=== PATIENT | female | born 1975 | race Caucasian/White ===

== ENCOUNTER 2024-07-08 20:31 | Emergency (ER) | payer OTHER, SELFPAY ==
[2024-07-08] VITALS (10 sets, daily range): BP systolic 132–144; BP diastolic 75–102; PULSE 76–86; RESP 18; TEMP 36.7; O2SAT 96–99; BMI 31.3
--- NOTE | 2024-07-08 20:37 | ED_ITS ---
HPI - General Adult General Chief complaint: Chest Pain Stated complaint: Short of breath, chest pain Time Seen by Provider: 07/08/24 20:37 History of Present Illness HPI narrative: CC: Chest Pain , Shortness of Breath pt. with shortness of breath since she had covid 2 weeks ago. started with chest pain tonight about 1935. denies fevers, n/v, diarrhea. 49 year old woman presenting to the emergency department with complaint of chest pain. This frankly is the reason that she is presenting to the emergency department she clarifies later. Was diagnosed with COVID a couple of weeks ago. Has since tested negative. Has had a couple of visits for shortness of breath since this diagnosis. Shortness of breath is more pronounced when she tries to lay down. Does not have a diagnosis of heart failure. She did receive 1st round of vaccines apparently having a reaction to that and 2nd and has a continued. She has had she estimates now COVID about 4 times. Does not have underlying respiratory disease but did have some wheeze she reports when she was 1st assessed in the last 2 weeks. She is now on her 2nd round of steroids prescribed 3 days ago for 4 days. Does still have some cough. At rest this evening though began to feel intermittent pain that was ongoing for least an hour prior to arrival here in the emergency department. Located in the sternal and left mid chest. Later described as a burning pain that did not seem to be heartburn. Noted her blood pressure to be 170 systolic at home over at least 100 diastolic. I note her to be somewhat tremulous and she does admit to some anxiety. Generally tobacco free though admits that she does sneak cigarettes. No known cardiovascular disease. She is worried about the tension that she has been feeling in her face which she associates with fluid retention; worried about that resolving. She notes that her hands and fingers are puffy as well. And when she opens her hands they just feel tight. I do review records from last ER visit 3 days ago. She has had chest x-rays done on both visits and noted to be unremarkable. Related Data Home Medications ?Medication ?Instructions ?Recorded ?Confirmed lisinopril 10 mg tablet 10 mg PO DAILY 07/08/24 07/08/24 propranolol 120 mg capsule,24 120 mg PO DAILY 07/08/24 07/08/24 hr,extended release Allergies Allergy/AdvReac Type Severity Reaction Status Date / Time metoclopramide [From Reglan] Allergy Mild Agitation Verified 07/08/24 20:40 Penicillins Allergy Mild Hives Verified 07/08/24 20:40 prochlorperazine Allergy Mild Agitation Verified 07/08/24 20:40 [From Compazine] Review of Systems Status of ROS: Reports: 6 or more systems reviewed and unremarkable except as noted in History and below [facility] Medical History Intrauterine device ?Z97.5 - Presence of (intrauterine) contraceptive device (ICD-10) Hyperlipidemia ?E78.5 - Hyperlipidemia, unspecified (ICD-10) Anxiety disorder ?F41.9 - Anxiety disorder, unspecified (ICD-10) Asthma ?J45.909 - Unspecified asthma, uncomplicated (ICD-10) Hypertension ?I10 - Essential (primary) hypertension (ICD-10) ZABRINA on CPAP ?G47.33 - Obstructive sleep apnea (adult) (pediatric) (ICD-10) RLS (restless legs syndrome) ?G25.81 - Restless legs syndrome (ICD-10) Major depressive disorder ?F32.9 - Major depressive disorder, single episode, unspecified (ICD-10) Allergic rhinitis ?J30.9 - Allergic rhinitis, unspecified (ICD-10) Surgical History History of hysterectomy ?Z90.710 - Acquired absence of both cervix and uterus (ICD-10) History of carpal tunnel release ?Z98.890 - Other specified postprocedural states (ICD-10) History of endometrial ablation ?Z98.890 - Other specified postprocedural states (ICD-10) Social History Smoking Status: Never smoker Do you use any of these nicotine containing products: None Second hand tobacco smoke exposure: No How often do you have a drink containing alcohol: never How often do you have six or more drinks on one occasion: Never AUDIT-C Alcohol total score: 0 Non-prescribed substance use: denies use service: No Exam Narrative: Exam Narrative: Pleasant. Generally little flushed. Subtly labored in her breathing. Tremulous. Does appear anxious. Oropharynx is little sticky. Lungs are clear breath sounds throughout. There is no supraclavicular crepitus. Heart in regular rate and rhythm. No rub and auscultated leaning forward as well. Blood pressure initially noted at 144/102. Abdomen is nontender. There is some reproducibility to chest discomfort in the left upper sternum/sternal clavicular area. Apparently this radiated from mid sternum up. There is no rash. Lower extremities are without edema. Does appear to have some edema in her forearms and hands. Const: Vital Signs, click to edit/add: Vital Signs - 24 hr 07/08/24 20:35 07/08/24 21:21 07/08/24 21:23 Temperature 98.1 F Pulse Rate 83 Pulse Rate [Right Pulse Oximeter] 85 Respiratory Rate 18 Blood Pressure Blood Pressure [Ri ght Upper Arm] 144/102 H Pulse Oximetry 99 97 96 Oxygen Delivery Me thod Room Air 07/08/24 21:30 07/08/24 21:32 07/08/24 21:33 Temperature Pulse Rate 84 83 86 Pulse Rate [Right Pulse Oximeter] Respiratory Rate Blood Pressure 137/85 Blood Pressure [Ri ght Upper Arm] Pulse Oximetry 96 97 96 Oxygen Delivery Me thod 07/08/24 22:00 07/08/24 22:02 07/08/24 22:30 Temperature Pulse Rate 76 79 80 Pulse Rate [Right Pulse Oximeter] Respiratory Rate Blood Pressure 132/75 Blood Pressure [Ri ght Upper Arm] Pulse Oximetry 98 96 98 Oxygen Delivery Me thod 07/08/24 22:31 Temperature Pulse Rate 78 Pulse Rate [Right Pulse Oximeter] Respiratory Rate Blood Pressure 132/81 Blood Pressure [Ri ght Upper Arm] Pulse Oximetry 97 Oxygen Delivery Me thod Documenting provider has reviewed patient's vital signs: yes Course Vital Signs Vital signs: Initial Vital Signs Temperature 98.1 F 07/08/24 20:35 Temperature Source Temporal Artery Scan 07/08/24 20:35 Pulse Rate 85 07/08/24 20:35 Pulse Rhythm Regular 07/08/24 20:35 Pulse Strength 3+ Normal 07/08/24 20:35 Respiratory Rate 18 07/08/24 20:35 Blood Pressure 144/102 H 07/08/24 20:35 Blood Pressure Mean 116 H 07/08/24 20:35 Blood Pressure Position Supine 07/08/24 20:35 Pulse Oximetry 99 07/08/24 20:35 Oxygen Delivery Method Room Air 07/08/24 20:35 Vital Signs Temperature 98.1 F 07/08/24 20:35 Pulse Rate 85 07/08/24 20:35 Respiratory Rate 18 07/08/24 20:35 Blood Pressure 144/102 H 07/08/24 20:35 Pulse Oximetry 99 07/08/24 20:35 Oxygen Delivery Method Room Air 07/08/24 20:35 Temperature 98.1 F 07/08/24 20:35 Pulse Rate 78 07/08/24 22:31 Respiratory Rate 18 07/08/24 20:35 Blood Pressure 132/81 07/08/24 22:31 Pulse Oximetry 97 07/08/24 22:31 Oxygen Delivery Method Room Air 07/08/24 20:35 Medications Administered Medications: Discontinued Medications Generic Name Dose Route Start Last Admin Trade Name Freq PRN Reason Stop Dose Admin Sodium Chloride 500 mls @ 500 mls/hr 07/08/24 21:01 07/08/24 22:33 0.9 % Sodium Chloride 500 Ml IV 07/08/24 22:00 Infused .Q1H ONE Infusion Lorazepam 0.5 mg 07/08/24 21:01 07/08/24 21:15 Lorazepam 2 Mg/Ml Inj IVP 07/08/24 21:02 0.5 mg ONCE ONE Administration Lorazepam 0.5 mg 07/08/24 21:59 07/08/24 22:09 Lorazepam 2 Mg/Ml Inj IVP 07/08/24 22:00 0.5 mg ONCE ONE Administration Medical Decision Making MDM Narrative Medical decision making narrative: I do wonder if prednisone has contributed to some fluid retention which is the changes somewhat that she is seeing her skin. Can certainly check for any renal dysfunction in labs. Think anxiety is compounding symptoms here; she appears in agreement as does her significant other who accompanies. I would monitor also for tachyarrhythmia. There may also be some simple chest wall pain or pulmonary embolus. I think can screen with labs as she has low risk generally. Will check labs also for an indication of recent cardiovascular injury. Offering IV fluids if potentially would also moved towards contrasted imaging. And will treat with dose of lorazepam On reassessment has not noticed the initial dose of lorazepam. And re-dosing. Labs are generally reassuring. Venous blood gases a little bit on the basic side. Perhaps has been hyperventilating l although CO2 level is normal On reassessment is significantly improved. A little sleepy. Appears reassured. I think needs some more time to recover from COVID. Attempted offer reassurance today. See patient discharge plan for further discussion Medical Records Medical records reviewed: Yes I reviewed the patient's medical records Lab Data Lab results reviewed: Yes I reviewed the patient's lab results Labs: Lab Results 07/08/24 07/08/24 07/08/24 Range/Units 21:01 21:02 21:15 WBC 9.63 (4.50-11.00) K/uL RBC 4.90 (4.00-5.20) m/uL Hgb 14.8 (12.0-16.0) gm/dL Hct 44.2 (33.0-51.0) % MCV 90 (80-100) fL MCH 30 (26-34) pg MCHC 34 (32-36) gm/dL RDW Coeff of Janie 12.4 (11.5-15.5) % Plt Count 213 (140-440) K/uL Neut % (Auto) 61.7 (42.0-72.0) % Lymph % (Auto) 26.9 (20-44) % Banner % (Auto) 7.3 (0.0-11.0) % Eos % (Auto) 3.3 (0.0-7.0) % Baso % (Auto) 0.5 (0.0-3.0) % Neut # (Auto) 5.94 (1.7-7.0) K/uL Lymph # (Auto) 2.59 (0.90-2.90) K/uL Banner # (Auto) 0.70 (0.00-0.90) K/UL Eos # (Auto) 0.32 (0.00-0.50) K/uL Baso # (Auto) 0.05 (0.00-0.30) K/uL Abs Immat Gran (auto) 0.03 (0.00-0.30) K/uL Imm/Tot Granulo (auto) 0.3 % D-Dimer Quant (PE/DVT) 0.33 (0.00-0.50) ug/ml VBG pH 7.450 H (7.32-7.43) VBG pCO2 40 (40-50) mmHG VBG pO2 42.5 (25-47) mmHG VBG HCO3 28 (21-28) mmol/L Sodium 137 (135-149) mmol/L Potassium 4.0 (3.6-5.1) mmol/L Chloride 105 (96-114) mmol/L Carbon Dioxide 25 (20-32) mmol/L Anion Gap 7 (7-15) mEq/L BUN 16 (5-24) mg/dL Creatinine 0.8 (0.5-1.5) mg/dL Estimated Creat Clear 83.63 Estimated GFR 91 ml/min Glucose 128 H (60-115) mg/dL Calcium 9.6 (8.4-10.6) mg/dL Magnesium 2.3 (1.5-2.6) mg/dL Troponin I < 0.01 L (0.01-0.04) ng/mL C-Reactive Protein 0.8 (0.5-1.0) mg/dL NT-Pro-B Natriuret Pep 52 pg/mL POC Troponin I 0.01 (0.01-0.04) ng/ml ECG Data Attestation: I personally reviewed and interpreted this ECG as follows: (Normal sinus rhythm at 73) Discharge Plan Discharge Clinical Impression: Atypical chest pain, COVID, Anxiety Patient Disposition: Home w/ Parent or Adult Condition: Improved Additional Instructions: I am reassured by your labs, your vitals and generally improved symptoms. Give yourself a little more time to recover. Try to stay active; this can help mobilize fluids as well. Return/be seen for marked increase in persistent pain or shortness of breath, increasing and persistent fever. Prescriptions: No Action lisinopril 10 mg tablet 10 mg PO DAILY propranolol 120 mg capsule,extended release 24 hr 120 mg PO DAILY Follow Up/Referrals: Provider,Not a Local [Primary Care Provider] - Stand Alone Forms: Painting With A Twist Info Instructions
[2024-07-08] MEDS: 0.9 % SODIUM CHLORIDE 500 ML 500 ML IV (21:13)
[2024-07-08] MEDS: LORazepam 2 MG/ML inj 0.5 MG IVP ×2 (21:15→22:09)
[2024-07-08 21:26] LABS: HCO3 VBG 28 mmol/L (21-28); PCO2 VBG 40 mmHG (40-50); PO2 VBG 42.5 mmHG (25-47)
[2024-07-08 21:29] LABS: Basophils Absolute Auto 0.05 K/uL (0.00-0.30); Basophils Percent Auto 0.5 % (0.0-3.0); Eosinophils Absolute Auto 0.32 K/uL (0.00-0.50); Eosinophils Percent Auto 3.3 % (0.0-7.0); Hematocrit 44.2 % (33.0-51.0); Hemoglobin* 14.8 gm/dL (12.0-16.0); Immature Granulocytes Abs Auto 0.03 K/uL (0.00-0.30); Immature Granulocytes Pct Auto 0.3 %; Lymphocytes Absolute Auto 2.59 K/uL (0.90-2.90); Lymphocytes Percent Auto 26.9 % (20-44); Mean Corpuscular HGB Conc 34 gm/dL (32-36); Mean Corpuscular Hemoglobin 30 pg (26-34); Mean Corpuscular Volume 90 fL (80-100); Monocytes Percent Auto 7.3 % (0.0-11.0); Neutrophils Absolute Auto 5.94 K/uL (1.7-7.0); Neutrophils Percent Auto 61.7 % (42.0-72.0); Platelet Count* 213 K/uL (140-440); RDW Coefficient of Variation % 12.4 % (11.5-15.5); White Blood Count* 9.63 K/uL (4.50-11.00)
[2024-07-08 21:29] LABS: Troponin, Point-of-Care* 0.01 ng/ml (0.01-0.04)
[2024-07-08 21:41] LABS: Slide Review Reflex No
[2024-07-08 21:50] LABS: D Dimer Quantitative* 0.33 ug/ml (0.00-0.50)
[2024-07-08 21:56] LABS: Magnesium* 2.3 mg/dL (1.5-2.6)
--- OUTSIDE RECORDS SUMMARY | 2024-07-08 22:04 | XMS_ITS | Encounter Summary ---
Author Organization [facility] Address [address] [place] [address] Care Team Providers Care Technical Account Representative Name Role Phone Ivan Echeverria P.A.-C. Primary Care Provider Encounter Details Date Type Department Care Team (Late st Contact Info) Description 05/26/2024 Orders Only Department of Family Medicine, [facility], in [place], [place] [address] [place] [address] Ivan Echeverria P.A.-C. [address] [place] [address] Pancreatitis Acute (HCC) (Primary Dx) Social History Tobacco Use Types Packs/Day Years Used Date Smoking Tobacco: Every Day Cigarettes 0.3 16 Smokeless Tobacco: Never Comments:3-4 cigarettes per day Alcohol Use Standard Drinks/Week Comments Yes 1 (1 standard drink = 0.6 oz pur e alcohol) occas. [facility] Utilities Answer Date Recorded In the past 12 months has e [employer], gas, oil, or water [employer] threatened to shut off services in your home? No 03/10/2024 Humiliation, Afraid, Rape, and Kick questionnair e Answer Date Recorded Within the last year, have y ou been afraid of your partner or ex-partner? No 06/03/2023 Within the last year, have y ou been humiliated or emotionally abused in other ways by your partner or ex-partner? No Within the last year, have y ou been kicked, hit, slapped, or otherwise physically hurt by your partner or ex-partner? No 06/03/2023 Within the last year, have y ou been raped or forced to have any kind of sexual activity by your partner or ex-partner? No 06/03/2023 Social Connection and Isolation Panel [NHANES] A nswer Date Recorded In a typical week, how many times do you talk on the phone with family, friends, or neighbors? Once a week 03/02/20 How often do you get togethe r with friends or relatives? Once a week 03/02/2023 How often do you attend chur ch or judaism services? 1 to 4 times per year 03/02/2023 Do you belong to any clubs o r organizations such as nondenominational groups, unions, fraternal or athletic groups, or school groups? Patient declined 03/02/2023 How often do you attend meet ings of the clubs or organizations you belong to? Patient declined 03/02/2023 Are you , , di vorced, , never , or living with a partner? 03/02/2023 AUDIT-C Answer Date Recorded Q1: How often do you have a drink containing alc ohol? 2-4 times a month 03/02/2023 Q2: How many drinks containi ng alcohol do you have on a typical day when you are drinking? 1 or 2 03/02/2023 Q3: How often do you have si x or more drinks on one occasion? Never 03/02/2023 Overall Financial Resource Strain (CARDIA) Answe r Date Recorded How hard is it for you to pa y for the very basics like food, housing, medical care, and heating? Not hard at all 06/03/2023 PHQ-2 Answer Date Recorded PHQ-2 Score 5 05/25/2024 [facility] of Occupat ional Health - Occupational Stress Questionnaire Answer Date Recorded Do you feel stress - tense, restless, nervous, or anxious, or unable to sleep at night because your mind is troubled all the time - these days? Rather much 03/02/2023 Exercise Vital Sign Answer Date Recorde d On average, how many days pe r week do you engage in moderate to strenuous exercise (like a brisk walk)? 3 days 03/10/2024 On average, how many minutes do you engage in exercise at this level? 30 min 03/10/2024 Hunger Vital Sign Answer Date Recorded Within the past 12 months, y ou worried that your food would run out before you got the money to buy more. Never true 03/10/20 24 Within the past 12 months, t he food you bought just didn't last and you didn't have money to get more. Never true 03/10/2024 PRAPARE - Transportation Answer Date Re corded In the past 12 months, has l ack of transportation kept you from medical appointments or from getting medications? No 02/28 In the past 12 months, has l ack of transportation kept you from meetings, work, or from getting things needed for daily living? No 03/10/2024 Depression Answer Date Recor ded PHQ-9 Total Score (max 27) 11 05/25 Nutrition Answer Date Recorded On average, how many serving s of fruits and vegetables do you eat per day (serving size is equal to 1 cup or approximately the size of a tennis ball)? 5 or more 03/10/2024 Dental Answer Date Recorded Dental: Regular Dentist Yes 03/02/20 Employment Answer Date Recorded Employment status Employed and actively working without restrictions 03/10/2024 Housing Stability Answer Date Recorded What is your living situation today? I have a [facility] place to live 03/10/2024 Education Answer Date Recorded What is the highest level of school you have completed or the highest degree you have received? 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 [address] [place] [phone] Discharge Disposition: Home or Self Care 07/20/2024 1:00 PM CDT Office Visit Department of Orthopedic Surgery in [place], [place] [address] [facility] [place] [address] Gage Loya M.D. [address] [place] [phone] documented as of this encounter Visit Diagnoses Diagnosis Pancreatitis Acute (HCC)- Primary documented in this encounter Additional Health Concerns Assessment Noted Time PHQ-9 Depression Total Score: 11 024 3:35 PM CDT documented as of this encounter Care Teams Technical Account Representative Relationship Specialty Start Date End Date Ivan Echeverria P.A.-C. PCP - General 05/14/17 documented as of this encounter
--- OUTSIDE RECORDS SUMMARY | 2024-07-08 22:04 | XMS_ITS | Encounter Summary ---
Author Organization [facility] Address [address] [place] [address] Care Team Providers Care Inspector Assembly Name Role Phone Ivan Echeverria P.A.-C. Primary Care Provider Encounter Details Date Type Department Care Team (Latest Contact Info) Description 06/28/2024 11:27 AM CDT - 06/28/2024 11:59 PM CDT Hospital Encounter Department of Laboratory Medicine in [place], [place] [address] [place] [address] Ivan Echeverria P.A.-C. [address] [place] [phone] Pancreatitis Chronic (HCC); Pancreatitis Acute (HCC) Discharge Disposition: Home or Self Care Social History Tobacco Use Types Packs/Day Years Used Date Smoking Tobacco: Every Day Cigarettes 0.3 16 Smokeless Tobacco: Never Comments:3-4 cigarettes per day Alcohol Use Standard Drinks/Week Comments Yes 1 (1 standard drink = 0.6 oz pur e alcohol) occas. [facility] Utilities Answer Date Recorded In the past 12 months has e [employer], gas, oil, or water company threatened to shut off services in your [...] 03/02/2023 How often do you attend chur or yazidi services? 1 to 4 times per year 03/02/2023 Do you belong to any clubs o r organizations such as restorationist groups, unions, fraternal or athletic groups, or [...] Answer Date Recorded PHQ-2 Score 5 05/25/2024 [facility] of Occupat ional Health - Occupational Stress [...] your living situation today? I have a [facility] place to live 03/10/2024 Education Answer Date Recorded What is the highest level of school you have completed or the highest degree you have received? 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 18 g 11 06/23/2024 atorvastatin (LIPITOR) 20 mg tablet Take 1 tablet (20 mg total) by mouth daily. 90 tablet 3 01/22/2024 01/21/2025 busPIRone (BUSPAR) 10 mg tablet Take 1 tablet (10 mg total) by mouth 2 (two) times a day. 60 tablet 11 03/11/2024 03/11/2025 cyclobenzaprine (FLEXERIL) 10 mg tablet TAKE 1 TABLET(10 MG) BY MOUTH AT BEDTIME NEEDED FOR MUSCLE SPASMS 30 tablet 04/20/2024 DULoxetine (CYMBALTA) [address] capsule Take 1 capsule (60 mg total) by mouth daily. 90 capsule 3 01/22/2024 hydrOXYzine (ATARAX) 10 mg tablet Take 1 tablet (10 mg total) by mouth 4 (four) times a day as needed for anxiety. 30 tablet 01/22/2024 levonorgestreL (MIRENA) 20 mcg/24 hours (7 yrs) 52 mg IUD 1 each by intrauterine route continuously. 03/13/2022 lisinopriL (PRINIVIL,ZESTRIL) 10 mg tablet Take 1 tablet (10 mg total) by mouth daily. 90 tablet 3 01/22/2024 LORazepam (Ativan) 1 mg tablet Take 1 tablet (1 mg total) by mouth 2 (two) times a day as needed for anxiety. 20 tablet 05/25/2024 ondansetron ODT (ZOFRAN-ODT) 4 mg disintegrating tablet DISSOLVE 1 TABLET IN THE MOUTH EVERY 8 HOURS NEEDED FOR NAUSEA OR VOMITING 20 tablet 04/20/2024 pramipexole (MIRAPEX) 0.125 mg tablet TAKE 4 TABLETS BY MOUTH EVERY NIGHT AT BEDTIME 360 tablet 3 01/22/2024 propranoloL (INDERAL LA) 120 mg 24 hr capsule Take 1 capsule (120 mg total) by mouth daily. 90 capsule 3 01/22/2024 01/21/2025 semaglutide (Wegovy) 1 mg/0.5 mL pen injector injection Inject 1 mg under the skin every 7 (seven) days. 6 mL 3 04/14/2024 04/14/2025 predniSONE (Deltasone) 20 mg tablet Take 1 tablet (20 mg total) by mouth daily for 5 days. 5 tablet 06/28/2024 07/03/2024 documented as of this encounter Plan of Treatment Upcoming Encounters Date Type Department Care Team (Late st Contact Info) Description 07/18/2024 3:00 PM CDT Appointment Department of Radiology in [place], [place] [address] [place] [address] Ivan Echeverria P.A.-C. [address] [place] [phone] Discharge Disposition: Home or Self Care 07/20/2024 1:00 PM CDT Office Visit Department of Orthopedic Surgery in [place], [place] [address] [place] [phone] Gage Loya M.D. [address] [place] [address] documented as of this encounter Procedures Procedure Name Priority Date/Time Associated Diagnosis Comments LIPASE, S/P Routine 06/28/2024 11:32 AM CDT Pancreatitis Chronic (HCC) documented in this encounter Results * Lipase (06/28/2024 11:32 AM CDT) Lipase, P 35 13 - 60 U/L 06/28/2024 1: 35 PM CDT OWAT Blood (Blood, Venous) 06/28/2024 11:32 AM CDT 06/28/2024 1:26 PM CDT Ivan Echeverria P.A.-C. LAB BLOOD ADD- ON [facility] [address] [place] [address], [place] OW[facility] in [place] [address] [place] [address] documented in this encounter Visit Diagnoses Diagnosis Pancreatitis Chronic (HCC) Pancreatitis Acute (HCC) documented in this encounter Additional Health Concerns Assessment Noted Time PHQ-9 Depression Total Score: 11 05/25/2 024 3:35 PM CDT documented as of this encounter Care Teams Inspector Assembly Relationship Specialty Start Date End Date Ivan Echeverria P.A.-C. PCP - General 05/14/17 documented as of this encounter
--- OUTSIDE RECORDS SUMMARY | 2024-07-08 22:04 | XMS_ITS | Encounter Summary ---
Author Organization [facility] Address [address] [place] [address] Care Team Providers Care Culinary Artist Name Role Phone Ivan Echeverria P.A.-C. Primary Care Provider Encounter Details Date Type Department Care Team (Late st Contact Info) Description 06/23/2024 Orders Only Department of Family Medicine, [facility], in [place], [place] [address] [place] [phone] Ivan Echeverria P.A.-C. [address] [place] [phone] Social History Tobacco Use Types Packs/Day Years Used Date Smoking Tobacco: Every Day Cigarettes 0.3 16 Smokeless Tobacco: Never Comments:3-4 cigarettes per day Alcohol Use Standard Drinks/Week Comments Yes 1 (1 standard drink = 0.6 oz pur e alcohol) occas. [facility] Utilities Answer Date Recorded In the past 12 months has [facility] [employer], gas, oil, or water [employer]s [employer] threatened to shut off services in your [...] often do you attend chur ch or confucianist services? 1 to 4 times per year 03/02/2023 Do you belong to any clubs o r organizations such as episcopal groups, unions, fraternal or athletic groups, or [...] Answer Date Recorded PHQ-2 Score 5 05/25/2024 [facility] [place] of Occupat ional Health - Occupational Stress [...] your living situation today? I have a [facility] place to live 03/10/2024 Education Answer Date Recorded What is the highest level of school you have completed or the highest degree you have received? Associate degree: occupational, technical, or vocational program 06/03/2021 Sex and Gender Information Value Date Recorded Sex Assigned at Female 02/03/2019 8:19 AM MORTGAGE LOAN ORIGINATOR Gender Identity Female 02/03/2019 8:19 AM MORTGAGE LOAN ORIGINATOR Sexual Orientation Straight 02/03/2019 8: 19 AM MORTGAGE LOAN ORIGINATOR documented as of this encounter Plan of Treatment Upcoming Encounters Date Type Department Care Team (Late st Contact Info) Description 07/18/2024 3:00 PM CDT Appointment Department of Radiology in [place], [place] [address] [place] [phone] Ivan Echeverria P.A.-C. [address] [place] [phone] Discharge Disposition: Home or Self Care 07/20/2024 1:00 PM CDT Office Visit Department of Orthopedic Surgery in [place], [place] [address] [facility] [place] [phone] Gage Loya M.D. [address] [place] [phone] documented as of this encounter Visit Diagnoses Not on filedocumented in this encounter Additional Health Concerns Assessment Noted Time PHQ-9 Depression Total Score: 11 024 3:35 PM CDT documented as of this encounter Care Teams Culinary Artist Relationship Specialty Start Date End Date Ivan Echeverria P.A.-C. PCP - General 05/14/17 documented as of this encounter
--- OUTSIDE RECORDS SUMMARY | 2024-07-08 22:04 | XMS_ITS | Referral Summary ---
Author Organization [facility] Address [address] [place] [address] Care Team Providers Care Telephone Service Representative Name Role Phone Ivan Echeverria P.A.-C. Primary Care Provider Source Comments Patient records contain information from all sites at [facility]. For routine questions regarding patient records, call [phone] during business hours, M-F 8:00 AM - 5:00 PM Central Time. Record requests for emergency care only can be directed to [phone] at any time.[facility] Encounters Date Type Department Care Team Description 06/28/2024 11:27 AM CDT - 06/28/2024 11:59 PM CDT Hospital Encounter Department of Laboratory Medicine in [address] [address] Ivan Echeverria P.A.-C. Pancreatitis Chronic (HCC); Pancreatitis Acute (HCC) Discharge Disposition: Home or Self Care 06/28/2024 11:00 AM CDT Office Visit Department of Family Medicine, [facility], in [address] [address] Geri Vargas M.D. Personal History Of Infectious And Parasitic Disease (COVID-19) (Primary Dx); Shortness Of Breath; Hypertension Essential Primary; Abuse Tobacco Smoking 06/23/2024 Orders Only Department of Family Medicine, [facility], in [address] [address] Ivan Echeverria P.A.-C. 06/20/2024 Clinical Communication Department of Orthopedic Surgery in [place], [place] [address], [place] [address] Angeli Foster P.A.-C., P.A. No Show (Appointment on 06/20) 06/03/2024 Clinical Communication Department of Family Medicine, [facility], in [place], [place] [address] [place] [phone] Ivan Echeverria P.A.-C. Home BP 05/30/2024 7:41 AM CDT - 05/30/2024 11:59 PM CDT Hospital Encounter Department of Radiology in [place], [place] [address] [place] [phone] Ivan Echeverria P.A.-C. Pancreatitis Acute (HCC) Discharge Disposition: Home or Self Care 05/27/2024 Orders Only Department of Family Medicine, [facility], in [place], [place] [address] [place] [phone] Ivan Echeverria P.A.-C. Pancreatitis Acute (HCC) (Primary Dx) 05/26/2024 Orders Only Department of Family Medicine, [facility], in [place], [place] [address] [place] [address] Ivan Echeverria P.A.-C. Pancreatitis Acute (HCC) (Primary Dx) 05/26/2024 3:34 PM CDT - 05/26/2024 11:59 PM CDT Hospital Encounter Department of Laboratory Medicine in [place], [place] [address] [place] [phone] Ivan Echeverria P.A.-C. Pancreatitis Acute (HCC) Discharge Disposition: Home or Self Care 05/26/2024 Orders Only Department of Family Medicine, [facility], in [place], [place] [address] [place] [phone] Ivan Echeverria P.A.-C. Pancreatitis Acute (HCC) (Primary Dx) 05/26/2024 7:53 AM CDT - 05/26/2024 3:33 PM CDT Hospital Encounter Department of Laboratory Medicine in [address] [address] Ivan Echeverria P.A.-C. Pancreatitis Chronic (HCC) Discharge Disposition: Home or Self Care 05/25/2024 4:30 PM CDT Office Visit Department of Family Medicine, [facility], in [address] [address] Ivan Echeverria P.A.-C. Anxiety (Primary Dx) 05/13/2024 11:00 AM CDT Office Visit Department of [facility], [facility], in [address] [address] Ivan Echeverria P.A.-C. Preoperative Exam (Primary Dx); Carpal Tunnel Syndrome Left; Bruxism (Sleep Related); Depression Major Recurrent Moderate (HCC); Hyperlipidemia; Hypertension Essential Primary; Sleep Apnea; Restless Leg Syndrome; Pancreatitis Chronic (HCC); Tobacco Use; Anxiety 04/19/2024 Refill Department of Family Medicine, [facility], in [address] [address] Ivan Echeverria P.A.-C. Med Refill 04/14/2024 Orders Only Department of Family Medicine, [facility], in [address] [address] Ivan Echeverria P.A.-C. Pancreatitis Chronic (HCC) (Primary Dx) 04/13/2024 4:01 PM CDT - 04/13/2024 11:59 PM CDT Hospital Encounter Department of Laboratory Medicine in [address] [address] Ivan Echeverria P.A.-C. Arthralgia; Pancreatitis Chronic (HCC) Discharge Disposition: Home or Self Care 04/13/2024 Orders Only Department of Family Medicine, [facility], in [place] [address] [place] [phone] Ivan Echeverria P.A.-C. Arthralgia (Primary Dx); Pancreatitis Chronic (HCC) from Last 3 Months Allergies Active Allergy Reactions Criticality Noted Date Comments Prochlorperazine Anxiety 12/17/2022 increase anxiety Metoclopramide Hcl Other (see comments) Low 07/26/2019 Worsening of restless leg syndrome (see 07/26/19 ED visit notes). Penicillins Other (see comments) 12/30/2013 Sars-Cov-2 (Covid-19) - Moderna Rash,Shortness of breath (Reselect Reaction) 04/19/2021 Medications Medication Sig Dispensed Refills Start Date End Date Status levonorgestreL (MIRENA) 20 mcg/24 hours (7 yrs) 52 mg IUD 1 each by intrauterine route continuously. 03/13/2022 Active atorvastatin (LIPITOR) 20 mg tablet Take 1 tablet (20 mg total) by mouth daily. 90 tablet 3 01/22/2024 5 Active DULoxetine (CYMBALTA) [address] capsule Take 1 capsule (60 mg total) by mouth daily. 90 capsule 3 01/22/2024 Active hydrOXYzine (ATARAX) 10 mg tablet Take 1 tablet (10 mg total) by mouth 4 (four) times a day as needed for anxiety. 30 tablet 01/22/2024 Active lisinopriL (PRINIVIL,ZESTRIL) 10 mg tablet Take 1 tablet (10 mg total) by mouth daily. 90 tablet 3 01/22/2024 Active propranoloL (INDERAL LA) 120 mg 24 hr capsule Take 1 capsule (120 mg total) by mouth daily. 90 capsule 3 01/22/2024 5 Active pramipexole (MIRAPEX) 0.125 mg tablet TAKE 4 TABLETS BY MOUTH EVERY NIGHT AT BEDTIME 360 tablet 3 01/22/2024 Active busPIRone (BUSPAR) 10 mg tablet Take 1 tablet (10 mg total) by mouth 2 (two) times a day. 60 tablet 11 03/11/2024 5 Active semaglutide (Wegovy) 1 mg/0.5 mL pen injector injection Inject 1 mg under the skin every 7 (seven) days. 6 mL 3 04/14/2024 5 Active Additional Information Patient not taking.Reported on 06/28/2024 cyclobenzaprine (FLEXERIL) 10 mg tablet TAKE 1 TABLET(10 MG) BY MOUTH AT BEDTIME NEEDED FOR MUSCLE SPASMS 30 tablet 04/20/2024 Active ondansetron ODT (ZOFRAN-ODT) 4 mg disintegrating tablet DISSOLVE 1 TABLET IN THE MOUTH EVERY 8 HOURS NEEDED FOR NAUSEA OR VOMITING 20 tablet 04/20/2024 Active LORazepam (Ativan) 1 mg tablet Take 1 tablet (1 mg total) by mouth 2 (two) times a day as needed for anxiety. 20 tablet 05/25/2024 Active albuterol (Ventolin HFA) 90 mcg/actuation inhaler Inhale 2 puffs every 4 (four) hours as needed for wheezing or shortness of breath. 18 g 11 06/23/2024 Active predniSONE (Deltasone) 20 mg tablet Take 1 tablet (20 mg total) by mouth daily for 5 days. 5 tablet 06/28/2024 4 Active Problems Problem Noted Date Diagnosed Date Hypertension Essential Primary 01/14/2023 Tobacco Use 01/14/2023 Bruxism (Sleep Related) 07/18/2022 Sleep Apnea 07/25/2021 Hyperlipidemia 02/03/2019 Anxiety 03/22/2015 Restless Leg Syndrome 12/30/2013 Depression Major Recurrent Moderate 10/25/2007 Resolved Problems Problem Noted Date Diagnosed Date Resolved Date Preventive Gynecological Exam 02/26/2022 08/22/2022 Overview (02/26/2022): Pap smear with HPV cotesting is updated today. Mammogram is updated today. Cologuard was previously ordered. Routine fasting labs are up to date. Hypertensive Heart And Chron ic Kidney Disease With Heart Failure And Stage 1 To 4 Chronic Kidney Disease Or Unspecified Chronic Kidney Disease 01/09/2022 02/14/2022 Morbid Severe Obesity Due To Excess Calories 01/22/2024 Pneumonia Lobar 07/27/2019 08/25/2019 Deficiency Iron 02/20/2017 07/25/2021 Menorrhagia 05/07/2015 01/14/2023 Overview (02/26/2022): IUD strings are not visualized. Patient desires endometrial ablation. We will get her scheduled hysteroscopy, endometrial ablation and IUD replacement. Plan endometrial biopsies at time of surgery. H&P completed today. Surgical is scheduled for 03/13/2022. Will also obtain pelvic XR prior to surgery to determine if IUD placement can be found. Risks, benefits and alternatives are discussed. Bleeding, infection, damage to internal organs, and results may not be adequate are reviewed. Hypertensive Heart Disease With Heart Failure 12/30/19 14 01/14/2023 Overview (04/21/2017): HTN [Hypertension] Immunizations Name Administration Dates Next Due DTaP (Infanrix, [employer]edia) 08/19/1977,,1976,1975 HepB Adult 05/23/2022,01/09/2022,02/04/2019 HepB Dialysis 02/04/2019 Influenza TIV (IM) 09/28/2012,10/18/2007, 003 MMR 12/18/1993,05/15/1977 PCV20 05/30/2022 Polio, Unspecified 08/19/1977, 6,1976,1975,1976 SARS-COV-2 (COVID-19) - PFIZ ER (Discontinued)(12 years or older) 03/11/2024(Deferred: Patient Refused) Td (Adult), adsorbed 11/30/2003 Tdap 01/11/2024,12/30/2013 Tetanus Toxoid, Adsorbed (discontinued) 12/18/1993 influenza vaccine quad (FLUZONE/FLUARIX) (6 months and older)(PF) 09/03/2023,09/17/2022,10/18/2021,2019,08/25/2019,09/08/2018 rubella and mumps (discontinued) 07/18/1981 Social History Tobacco Use Types Packs/Day Years Used Date Smoking Tobacco: Every Day Cigarettes 0.3 16 Smokeless Tobacco: Never Tobacco Cessation:Ready to Q uit: Not Asked; Counseling Given: Not Answered Comments:3-4 cigarettes per day Alcohol Use Standard Drinks/Week Comments Yes 1 (1 standard drink = 0.6 oz pur e alcohol) occas. [facility] Utilities Answer Date Recorded In the past 12 months has e [employer], gas, oil, or water company threatened to [...] week 03/02/2023 How often do you attend [facility] or anabaptist services? 1 to 4 times per year 03/02/2023 Do you belong to any clubs o r organizations such as buddhist groups, unions, fraternal or athletic groups, or [...] Answer Date Recorded PHQ-2 Score 5 05/25/2024 [facility] Occupational Stress Questionnaire Answer Date Recorded [...] your living situation today? I [address] a [facility] [place] place to live 03/10/2024 Education Answer Date Recorded What is the highest level of school you have completed or the highest degree you have received? Associate degree: occupational, technical, or vocational program 06/03/2021 Sex and Gender Information Value Date Recorded Sex Assigned at Female 02/03/2019 8:19 AM SENIOR QUALITY ASSURANCE ENGINEER Gender Identity Female 02/03/2019 8:19 AM SENIOR QUALITY ASSURANCE ENGINEER Sexual Orientation Straight 02/03/2019 8: 19 AM SENIOR QUALITY ASSURANCE ENGINEER Last Filed Vital Signs Vital Sign Reading Time Taken Comments Blood Pressure 134/95 06/28/2024 11:09 AM CDT Pulse 86 06/28/2024 11:09 AM CDT Temperature 35.8 ??C (96.5 ??F) 06/28/2024 1 1:03 AM CDT Respiratory Rate 18 06/28/2024 11:0 3 AM CDT Oxygen Saturation 96% 06/28/2024 11: 03 AM CDT room air with mask Inhaled Oxygen Concentration - - Weight 91.2 kg (201 lb 1 oz) 06/28/2024 11:03 AM CDT Height 169 cm (5' 6.54) 06/28/2024 11: 03 AM CDT Body Mass Index 31.93 06/28/2024 11:03 AM CDT Plan of Treatment Upcoming Encounters Date Type Department Care Team (Late st Contact Info) Description 07/18/2024 3:00 PM CDT Appointment Department of Radiology in [address] [phone] Ivan Echeverria P.A.-C. [address] [place] [address] Discharge Disposition: Home or Self Care 07/20/2024 1:00 PM CDT Office Visit Department of Orthopedic Surgery in [address] [phone] Gage Loya M.D. [address] [place] [address] Medical Devices Implanted Type Area Overhead Garage Door Hanger Device Identifier Shelf Expiration Date Model / Serial / Lot Gynecologic Other-04/11/2016 Implanted:04/11 by Winston Segal M.D. (Quantity not on file) Gynecologic Other Uterus Description:Mirena Procedures Procedure Name Priority Date/Time Associated Diagnosis Comments LIPASE, S/P Routine 06/28/2024 11:32 AM CDT Pancreatitis Chronic (HCC) CT ABDOMEN WITHOUT AND WITH IV CONTRAST RAD - Routine (most inpatients and all outpatients) 05/30/2024 8:18 AM CDT Pancreatitis Acute (HCC) LIPASE, S/P Routine 05/26/2024 8:00 AM CDT Pancreatitis Chronic (HCC) BASIC METABOLIC PANEL, S/P Routine 05/26/2024 7:54 AM CDT Pancreatitis Acute (HCC) LIPASE, S/P Routine 04/13/2024 4:06 PM CDT Pancreatitis Chronic (HCC) QUANTITATIVE M-PROTEIN STUDY, S Routine 04/13/2024 4:06 PM CDT Arthralgia LIPID PANEL, S Routine 01/21/2024 7:45 AM SENIOR QUALITY ASSURANCE ENGINEER Hyperlipidemia Hypertension Essential Primary COLOGUARD Routine 05/22/2023 4:05 AM CDT Screening Cancer Colon BI BREAST SCREENING BILATERAL WITH TOMOSYNTHESIS RAD - Routine (most inpatients and all outpatients) 04/08/2023 1:36 PM CDT Screening Mammogram Breast Cancer HPV WITH GENOTYPING, PCR, THINPREP Routine 02/26/2022 4:41 PM CDT from Last 3 Months or Most Recently Relevant to Health Maintenance Results * Lipase (06/28/2024 11:32 AM CDT) Only the most recent of3 resultswithin the time period is included. Lipase, P 35 13 - 60 U/L 06/28/2024 1: 35 PM CDT OW[facility] Blood (Blood, Venous) 06/28/2024 11:32 AM CDT 06/28/2024 1:26 PM CDT Ivan Echeverria P.A.-C. LAB BLOOD ADD- ON [facility] [address] [place] [address], [facility] in [place] [address] [place] [address] * CT Abdomen without and with IV Contrast (05/30/2024 8:18 AM CDT) Anatomical Region Laterality Modality Abdomen, Abdominal RST LOS, Abdominal ARZ LOS, Abdominal FLA LOS N/A Computed Tomography 05/30/2024 8:13 AM CDT Impressions 05/30/2024 8:29 AM CDT 1. Normal pancreas, no CT evidence for acute pancreatitis. 2. Normal-appearing appendix. 3. No acute intra-abdominal/pelvic pathology given the images provided Narrative 05/30/2024 8:29 AM CDT EXAM: CT ABDOMEN WITHOUT AND WITH IV CONTRAST COMPARISON: None FINDINGS: Lung bases: The bilateral bases are clear of airspace disease. Liver: No focal lesion identified. Normal enhancement. Gallbladder and Biliary Tree: No evidence of cholelithiasis. No biliary dilatation. Spleen: No focal lesion is identified. No evidence of splenomegaly. Pancreas: Normal enhancement. No focal lesion or ductal dilatation. Adrenal glands: No focal lesion identified. Kidneys, ureters, and bladder: Normal enhancement. No evidence of hydronephrosis or hydroureter. No suspicious mass lesion. No renal or ureteral calculi. GI tract: Normal-appearing appendix in the right lower quadrant seen best on image [id number] of series 4. There is no small bowel or colon obstruction or pneumatosis given the images provided. No free intraperitoneal air, free fluid, fluid collection, or abscess given the images provided. Aortoiliac atherosclerotic changes are observed. No abdominal or pelvic adenopathy. The visualized portion of the uterus appears within normal limits. Bones: No lytic or blastic bone lesions given the images provided. Procedure Note José Manuel Adames M.D. - 05/30/2024 EXAM: CT ABDOMEN WITHOUT AND WITH IV CONTRAST COMPARISON: None FINDINGS: Lung bases: The bilateral bases are clear of airspace disease. Liver: No focal lesion identified. Normal enhancement. Gallbladder and Biliary Tree: No evidence of cholelithiasis. No biliarydilatation. Spleen: No focal lesion is identified. No evidence of splenomegaly. Pancreas: Normal enhancement. No focal lesion or ductal dilatation. Adrenal glands: No focal lesion identified. Kidneys, ureters, and bladder: Normal enhancement. No evidence ofhydronephrosis or hydroureter. No suspicious mass lesion. No renal orureteral calculi. GI tract: Normal-appearing appendix in the right lower quadrant seen beston image [id number] of series 4. There is no small bowel or colon obstructionor pneumatosis given the images provided. No free intraperitoneal air, free fluid, fluid collection, or abscessgiven the images provided. Aortoiliac atherosclerotic changes areobserved. No abdominal or pelvic adenopathy. The visualized portion of theuterus appears within normal limits. Bones: No lytic or blastic bone lesions given the images provided. IMPRESSION: 1. Normal pancreas, no CT evidence for acute pancreatitis. 2. Normal-appearing appendix. 3. No acute intra-abdominal/pelvic pathology given the images provided Ivan Echeverria P.A.-C. [facility] PROCEDU RES * Basic Metabolic Panel (05/26/2024 7:54 AM CDT) Potassium, P 4.2 3.6 - 5.2 mmol/L 05/26/2024 3:55 PM CDT [facility] Sodium, P 136 135 - 145 mmol/L 05/26/2024 3:55 PM CDT [facility] Chloride, P 102 98 - 107 mmol/L 05/26/2024 3:55 PM CDT OW[facility] Bicarbonate, P 22 22 - 29 mmol/L 05/26/2024 3:55 PM CDT [facility] Anion Gap, P 12 7 - 15 05/26/2024 3:55 PM CDT [facility] BUN (Blood Urea Nitrogen), P 14 6 - 21 mg/dL 05/26/2024 3:55 PM CDT [facility] Creatinine 0.97 0.59 - 1.04 mg/dL 05/26/2024 3:55 PM CDT OWAT Estimated GFR (eGFR) 72 >=60 mL/min/BSA 05/26/2024 3:55 PM CDT [facility] Comment: Estimated GFR calculated using the 2020 CKD_EPI creatinine equation. Calcium, Total, P 9.0 8.6 - 10.0 mg/dL 05/26/2024 3:55 PM CDT OWAT Glucose, P 102 70 - 140 mg/dL 05/26/2024 3:55 PM CDT [facility] Blood (Blood, Venous) 05/26/2024 7:54 AM CDT 05/26/2024 3:43 PM CDT Ivan Echeverria P.A.-C. LAB BLOOD ADD- ON [facility] [address] [address], [facility] [place] [address] [place] [address] * Quantitative M-protein Study (04/13/2024 4:06 PM CDT) Immunoglobulin A (IgA), S 195 61 - 356 mg/dL 04/14/2024 9:40 AM CDT [facility] Immunoglobulin M (IgM), S 67 37 - 286 mg/dL 04/14/2024 9:40 AM CDT [facility] Immunoglobulin G (IgG), S 1110 767 - 1590 mg/dL 04/14/2024 9:40 AM CDT [facility] Therapeutic Antibody Administered? Unspecified 04/14/2024 6:19 AM CDT [facility] Flag, M-protein Isotype Negative Negative 04/15/2024 8:08 AM CDT [facility] QMPTS Interpretation No monoclonal protein detected. 04/15/2024 8:08 AM CDT [facility] Comment: ----ADDITIONAL INFORMATION---- The submitted sample was assayed by five separate immunopurifications for IgG, IgA, IgM, kappa and lambda. ??The result reflects the findings of either no monoclonal protein detected or those monoclonal immunoglobulins that were detected. This test was developed and its performance characteristics determined by [facility] in a manner consistent with CLIA requirements. This test has not been cleared or approved by the U.S. Food and Drug Administration. Blood (Blood, Venous) 04/13/2024 4:06 PM CDT 04/14/2024 6:16 AM CDT Narrative [facility] - 04/15/2024 8:08 AM CDT Specimen Information: Specimen ID: [id number] Specimen Type: Blood Specimen Collection Start Date: 04/13/2024 ??4:06 PM Specimen Received Date: 04/14/2024 ??6:16 AM Specimen ID: [id number] Specimen Type: Blood Specimen Collection Start Date: 04/13/2024 ??4:06 PM Specimen Received Date: 04/14/2024 ??6:19 AM Ivan Echeverria P.A.-C. LAB BLOOD ADD- ON [facility] [address] [place], [place] [address] [place] [address] [facility] [address] [place], [place] [id number] [place] [address] [address]. [place] [place] [address] [place] [address] * (ABNORMAL) Lipid Panel (01/21/2024 7:45 AM SENIOR QUALITY ASSURANCE ENGINEER) Triglycerides 158(H) mg/dL 01/21/2024 1:56 PM SENIOR QUALITY ASSURANCE ENGINEER [facility]AT Comment: ----REFERENCE VALUE---- Normal: <150 mg/dL Borderline High: 150-199 mg/dL High: 200-499 mg/dL Very High: > or =500 mg/dL Cholesterol, Total 169 mg/dL 2023 1:56 PM SENIOR QUALITY ASSURANCE ENGINEER [facility] Comment: ----REFERENCE VALUE---- Desirable: < 200 mg/dL Borderline High: 200 - 239 mg/dL High: > or = 240 mg/dL Cholesterol, LDL, Calculated 95 mg/dL 01/21/2024 1:56 PM SENIOR QUALITY ASSURANCE ENGINEER [facility]AT Comment: ----REFERENCE VALUE---- Desirable: <100 mg/dL Above Desirable: 100-129 mg/dL Borderline High: 130-159 mg/dL High: 160-189 mg/dL Very High: >=190 mg/dL ----ADDITIONAL INFORMATION---- LDL cholesterol calculated using the Multani/NIH equation. Cholesterol, HDL 47(L) >=50 mg/dL 01/21/20 1:56 PM SENIOR QUALITY ASSURANCE ENGINEER OWAT Cholesterol, Non-HDL, Calculated 122 mg/dL 01/21/2024 1:56 PM SENIOR QUALITY ASSURANCE ENGINEER OWAT Comment: ----REFERENCE VALUE---- Desirable: <130 mg/dL Above Desirable: 130-159 mg/dL Borderline High: 160-189 mg/dL High: 190-219 mg/dL Very High: > or =220 mg/dL Fasting (8 HR or more) No 01/21/2024 1:27 PM SENIOR QUALITY ASSURANCE ENGINEER [facility] Blood (Blood, Venous) 01/21/2024 7:45 AM SENIOR QUALITY ASSURANCE ENGINEER 01/21/2024 1:27 PM SENIOR QUALITY ASSURANCE ENGINEER Ivan Echeverria P.A.-C. LAB BLOOD ADD- ON [facility] [address] [place] [id number], [facility] [place] [address] [place] [address] * Cologuard - Sent Out Lab (05/22/2023 4:05 AM CDT) Result Negative Negative 05/28/2023 4:42 PM CDT [facility] Comment: NEGATIVE TEST RESULT. A negative Cologuard result indicates a low likelihood that a colorectal cancer (CRC) or advanced adenoma (adenomatous polyps with more advanced pre-malignant features) ??is present. The chance that a person with a negative Cologuard test has a colorectal cancer is less than 1 in 1500 (negative predictive value >99.9%) or has an ??advanced adenoma is less than ??5.3% (negative predictive value 94.7%). These data are based on a prospective cross-sectional study of 10,000 individuals at average risk for colorectal cancer who were screened with both Cologuard and colonoscopy. (Dede Rodas, N Engl J Med 2014;370(14):5812-7864) The normal value (reference range) for this assay is negative. COLOGUARD RE-SCREENING RECOMMENDATION: Periodic colorectal cancer screening is an important part of preventive healthcare for asymptomatic individuals at average risk for colorectal cancer. ??Following a negative Cologuard result, the [place] [employer] Society and U.S. Multi-Society Task Force screening guidelines recommend a Cologuard re-screening interval of 3 years. References: [place] [employer] Guideline for Colorectal Cancer Screening: https://www.cancer.org/cancer/pdbsw-hjgbal-amuiqo/detection- diagnosis-staging/acs-recommendations.html.; Gordy DK, Collins CR, Valerie BrownK, Colorectal Cancer Screening: Recommendations for Physicians and Patients from the U.S. Multi-Society Task Force on Colorectal Cancer Screening , Am J Gastroenterology 2017; 112:4461-0591. TEST DESCRIPTION: Composite algorithmic analysis of stool DNA-biomarkers with hemoglobin immunoassay. ?? Quantitative values of individual biomarkers are not reportable and are not associated with individual biomarker result reference ranges. Cologuard is intended for colorectal cancer screening of adults of either sex, 45 years or older, who are at average-risk for colorectal cancer (CRC). Cologuard has been approved for use by the U.S. FDA. The performance of Cologuard was established in a cross sectional study of average-risk adults aged 50-84. Cologuard performance in patients ages 45 to 49 years was estimated by sub-group analysis of near-age groups. Colonoscopies performed for a positive result may find as the most clinically significant lesion: colorectal cancer [4.0%], advanced adenoma (including sessile serrated polyps greater than or equal to 1cm diameter) [20%] or non- advanced adenoma [31%]; or no colorectal neoplasia [45%]. These estimates are derived from a prospective cross-sectional screening study of 10,000 individuals at average risk for colorectal cancer who were screened with both Cologuard and colonoscopy. (Dede Rodas, N Engl J Med 2014;370(14):3413-3084.) Cologuard may produce a false negative or false positive result (no colorectal cancer or precancerous polyp present at colonoscopy follow up). A negative Cologuard test result does not guarantee the absence of CRC or advanced adenoma (pre-cancer). The current Cologuard screening interval is every 3 years. ([place] [employer] and U.S. Multi-Society Task Force). Cologuard performance data in a 10,000 patient pivotal study using colonoscopy as the reference method can be accessed at the following location: [email or web address]. Additional description of the Cologuard test process, warnings and precautions can be found at [email or web address]. Stool (Stool) 05/22/2023 4:0 5 AM CDT 05/23/2023 5:47 PM CDT Ivan Echeverria P.A.-C. LAB BODY FLUID S AND STOOLS ORDERABLES [facility] [address] [place] [address] [employer] [address] [place] [address], [address] [place] [address] * BI Breast Screening Bilateral with Tomosynthesis (04/08/2023 1:36 PM CDT) Anatomical Region Laterality Modality Breast, Breast Imaging RST L OS, Breast Imaging ARZ LOS, Breast Imaging FLA LOS Bilateral Mammography 04/08/2023 4:06 PM CDT Impressions 04/08/2023 4:08 PM CDT Negative. RECOMMENDATION: ??Annual Screening Mammogram Annual screening mammogram. ASSESSMENT: ??BI-RADS: 1: Negative. Narrative 04/08/2023 4:08 PM CDT EXAM: ??BI BREAST SCREENING BILATERAL WITH TOMOSYNTHESIS Current study was evaluated with a Computer Aided Detection (CAD) system. INDICATION: ??Screening mammogram. COMPARISON: ??Dating back to 2017 DENSITY: ??c. The breast(s) are heterogeneously dense, which may obscure small masses. FINDINGS: ??No mammographic findings of malignancy. Procedure Note Ray Linares M.D. - 04/08/2023 EXAM: BI BREAST SCREENING BILATERAL WITH TOMOSYNTHESIS Current study was evaluated with a Computer Aided Detection (CAD) system. INDICATION: Screening mammogram. COMPARISON: Dating back to 2017 DENSITY: c. The breast(s) are heterogeneously dense, which may obscuresmall masses. FINDINGS: No mammographic findings of malignancy. IMPRESSION: Negative. RECOMMENDATION: Annual Screening Mammogram Annual screening mammogram. ASSESSMENT: BI-RADS: 1: Negative. Ivan Echeverria P.A.-C. IM BI PROCEDU RES * HPV with Genotyping, PCR, ThinPrep (02/26/2022 4:41 PM CDT) HPV with Genotyping, ThinPrep, PCR Negative Negative 02/27/2022 2:13 PM CDT [facility] Comment: Negative for high risk HPV by nucleic acid amplification. ??The following high risk HPV types were not detected: 16, 18, 31, 33, 35, 39, 45, 51, 52, 56, 58, 59, 66, and 68 Varies 02/26/2022 4:41 PM CDT 02/27/2022 7:01 AM CDT Matthew Mckinney Jr., M.D. LAB MICROBIOLO GY - GENERAL ORDERABLES [facility] [address] [place] [address], [facility] in [place] [address] [place] [id number] from Last 3 Months or Most Recently Relevant to Health Maintenance Care Teams Telephone Service Representative Relationship Specialty Start Date End Date Ivan Echeverria P.A.-C. PCP - General 05/14/17
--- OUTSIDE RECORDS SUMMARY | 2024-07-08 22:04 | XMS_ITS | Encounter Summary ---
Author Organization [facility] Address [address] [place] [address] Care Team Providers Care Lock Installer Name Role Phone Ivan Echeverria P.A.-C. Primary Care Provider Reason for Visit * Reason Comments Upper Respiratory Infection Tested posit luis for Covid - 06/23 and she is still checking O2 and it says good, but she feels like she cannot catch her breath Encounter Details Date Type Department Care Team (Late st Contact Info) Description 06/28/2024 11:00 AM CDT Office Visit Department of Family Medicine, [facility], in [place], [place] [address] [place] [address] Geri Vargas M.D. [address] [place] [address] Personal History Of Infectious And Parasitic Disease (COVID-19) (Primary Dx); Shortness Of Breath; Hypertension Essential Primary; Abuse Tobacco Smoking Social History Tobacco Use Types Packs/Day Years Used Date Smoking Tobacco: Every Day Cigarettes 0.3 16 Smokeless Tobacco: Never Tobacco Cessation:Ready to Q uit: Not Asked; Counseling Given: Not Answered Comments:3-4 cigarettes per day Alcohol Use Standard Drinks/Week Comments Yes 1 (1 standard drink = 0.6 oz pur e alcohol) occas. [facility] Utilities Answer Date Recorded In the past 12 months has [employer], gas, oil, or water company threatened to [...] week 03/02/2023 How often do you attend [facility] or confucianist services? 1 to 4 times per year 03/02/2023 Do you belong to any clubs o r organizations such as amish groups, unions, fraternal or athletic groups, or [...] Answer Date Recorded PHQ-2 Score 5 05/25/2024 [facility] of Occupat ional Health - Occupational Stress [...] your living situation today? I have a [facility] place to live 03/10/2024 Education Answer Date Recorded What is the highest level of school you have completed or the highest degree you have received? Associate degree: occupational, technical, or vocational program 06/03/2021 Sex and Gender Information Value Date Recorded Sex Assigned at Female 02/03/2019 8:19 AM HELMINTHOLOGIST Gender Identity Female 02/03/2019 8:19 AM HELMINTHOLOGIST Sexual Orientation Straight 02/03/2019 8: 19 AM HELMINTHOLOGIST documented as of this encounter Last Filed Vital Signs Vital Sign Reading [...] Mass Index 31.93 06/28/2024 11:03 AM CDT documented in this encounter Progress Notes * Geri Vargas M.D. - 06/28/2024 11:00 AM CDT Progress Note Patient is 49 years old female with past medical history significant for smoking, hypertension, hyperlipidemia, sleep apnea, restless leg syndrome, anxiety, obesity, depression, who presented today to the clinic to follow-up recent ER visit on 06/23/2024 with COVID. Patient stated that she tested po sitive on 06/23/2024. She continues to have occasional cough but mostly shortness a breath. Patientstated that she has to sleep on a recliner because of her shortness a breath. She stated that she wakes up from sleep and she feels short of breath. She reported occasional wheezing. She stated that the cough is productive with clear sputum. She denies any fever, sore throat, abdominal pain, nausea, diarrhea, constipation. She stated that she stopped smoking few weeks ago before she got sick. Sheuses albuterol twice daily. Allergies Allergen Reactions Compazine [Prochlorperazine] Anxiety increase anxiety Penicillins Other (see comments) Sars-Cov-2 (Covid-19) - Moderna Rash and Shortness of breath (Reselect Reaction) Metoclopramide Hcl Other (see comments) Worsening of restless leg syndrome (see 07/26/19 ED visit notes). Current Outpatient Medications: albuterol (Ventolin HFA) 90 mcg/actuation inhaler, Inhale 2 puffs every 4 (four) hours as needed for wheezing or shortness of breath., Disp: 18 g, Rfl: 11 atorvastatin (LIPITOR) 20 mg tablet, Take 1 tablet (20 mg total) by mouth daily., Disp: 90 tablet, Rfl: 3 busPIRone (BUSPAR) 10 mg tablet, Take 1 tablet (10 mg total) by mouth 2 (two) times a day., Disp: 60 tablet, Rfl: 11 cyclobenzaprine (FLEXERIL) 10 mg tablet, TAKE 1 TABLET(10 MG) BY MOUTH AT BEDTIME NEEDED FOR MUSCLE SPASMS, Disp: 30 tablet, Rfl: 0 DULoxetine (CYMBALTA) [address] capsule, Take 1 capsule (60 mg total) by mouth daily., Disp: 90 capsule, Rfl: 3 hydrOXYzine (ATARAX) 10 mg tablet, Take 1 tablet (10 mg total) by mouth 4 (four) times a day as needed for anxiety., Disp: 30 tablet, Rfl: 0 levonorgestreL (MIRENA) 20 mcg/24 hours (7 yrs) 52 mg IUD, 1 each by intrauterine route continuously., Disp: , Rfl: lisinopriL (PRINIVIL,ZESTRIL) 10 mg tablet, Take 1 tablet (10 mg total) by mouth daily., Disp: 90 tablet, Rfl: 3 LORazepam (Ativan) 1 mg tablet, Take 1 tablet (1 mg total) by mouth 2 (two) times a day as needed for anxiety., Disp: 20 tablet, Rfl: 0 ondansetron ODT (ZOFRAN-ODT) 4 mg disintegrating tablet, DISSOLVE 1 TABLET IN THE MOUTH EVERY 8 HOURS NEEDED FOR NAUSEA OR VOMITING, Disp: 20 tablet, Rfl: 0 pramipexole (MIRAPEX) 0.125 mg tablet, TAKE 4 TABLETS BY MOUTH EVERY NIGHT AT BEDTIME, Disp: 360 tablet, Rfl: 3 propranoloL (INDERAL LA) 120 mg 24 hr capsule, Take 1 capsule (120 mg total) by mouth daily., Disp:90 capsule, Rfl: 3 predniSONE (Deltasone) 20 mg tablet, Take 1 tablet (20 mg total) by mouth daily for 5 days., Disp: 5 tablet, Rfl: 0 semaglutide (Wegovy) 1 mg/0.5 mL pen injector injection, Inject 1 mg under the skin every 7 (seven)days. (Patient not taking: Reported on 06/28/2024), Disp: 6 mL, Rfl: 3 Past Medical History: Diagnosis Date Anemia Iron Deficiency Anxiety Generalized Disorder Depressive Disorder Hyperlipidemia Mixed Hypertension NOS Insomnia Menorrhagia Restless Leg Syndrome Sleep Apnea 08/2019 Social History Tobacco Use Smoking status: Every Day Current packs/day: 0.25 Average packs/day: 0.3 packs/day for 16.0 years (4.0 ttl pk-yrs) Types: Cigarettes Smokeless tobacco: Never Tobacco comments: 3-4 cigarettes per day Vaping Use Vaping status: current some days use Substance Use Topics Alcohol use: Yes Alcohol/week: 1.0 standard drink of alcohol Types: 1 Glasses of wine per week Comment: occas. Drug use: No REVIEW OF SYSTEMS Vitals: 06/28/24 1103 06/28/24 1109 BP: (!) 134/94 (!) 134/95 BP Location: Left arm Left arm Patient Position: Sitting Sitting Cuff Size: Regular Regular Pulse: 86 86 Resp: 18 Temp: (!) 35.8 ??C TempSrc: Temporal SpO2: 96% Weight: 91.2 kg Height: 169 cm Constitutional Appearance: She is well-developed. HENT Head: Normocephalic and atraumatic. Right Ear: External ear normal. Left Ear: External ear normal. Nose: Nose normal. Eyes Conjunctiva/sclera: Conjunctivae normal. Pupils: Pupils are equal, round, and reactive to light. Cardiovascular Rate and Rhythm: Normal rate and regular rhythm. Heart sounds: Normal heart sounds. Pulmonary Effort: Pulmonary effort is normal. No respiratory distress. Breath sounds: Normal breath sounds. Abdominal General: Bowel sounds are normal. There is no distension. Palpations: Abdomen is soft. There is no mass. Tenderness: There is no abdominal tenderness. There is no guarding. Musculoskeletal General: Normal range of motion. Cervical back: Normal range of motion and neck supple. Skin General: Skin is warm and dry. Neurological Mental Status: She is alert and oriented to person, place, and time. Deep Tendon Reflexes: Reflexes are normal and symmetric. Psychiatric Behavior: Behavior normal. Cammie was seen today for upper respiratory infection. Diagnoses and all orders for this visit: Personal History Of Infectious And Parasitic Disease (COVID-19) Shortness Of Breath Abuse Tobacco Smoking Reviewed her recent x-ray done on 06/23/2024 was within normal limit. Lung exam within normal limit. Her oxygen saturation was 96% on room air. Congratulated on smoking cessation and encouraged maintenance. Will send the prescription for prednisone 20 mg to be taken for 5 days to help with bronchospasm symptoms. Advised to continue albuterol every 4 hours as needed. If she continues to have symptoms in the setting of her smoking history, she may need a pulmonary function test for further assessment of lung disease. Supportive care with [id number] medication, plenty of fluids and rest advised. Hypertension Essential Primary Blood pressure noticed to be elevated. Patient stated that she did not take her medication this morning. She is currently on lisinopril 10 mg daily. We will continue monitoring her blood pressure. Stressed compliance. Other orders - predniSONE (Deltasone) 20 mg tablet; Take 1 tablet (20 mg total) by mouth daily for 5 days. documented in this encounter Plan of Treatment Upcoming Encounters Date Type Department Care Team (Late st Contact Info) Description 07/18/2024 3:00 PM CDT Appointment Department of Radiology in [address] [phone] Ivan Echeverria, Olaf. [address] [place] [phone] Discharge Disposition: Home or Self Care 07/20/2024 1:00 PM CDT Office Visit Department of Orthopedic Surgery in [address] [phone] Gage Loya M.D. [address], [place] [address] documented as of this encounter Visit Diagnoses Diagnosis Personal History Of Infectious And Parasitic Disease (COVID-19)- Primary Shortness Of Breath Hypertension Essential Primary Abuse Tobacco Smoking documented in this encounter Additional Health Concerns Assessment Noted Time PHQ-9 Depression Total Score: 11 05/25/ 024 3:35 PM CDT documented as of this encounter Care Teams Lock Installer Relationship Specialty Start Date End Date Ivan Echeverria P.A.-C. PCP - General 05/14/17 documented as of this encounter
--- OUTSIDE RECORDS SUMMARY | 2024-07-08 22:04 | XMS_ITS ---
Author Organization [facility] Address [address] [place] [address] Care Team Providers Care Canary Breeder Name Role Phone Unavailable Unavailable Unavailable Surgery Details Not on file Complications Check Surgery Details section. Procedure Estimated Blood Loss Check Surgery Details section. Procedure Findings Check Surgery Details section. Procedure Specimens Taken Check Surgery Details section.
--- OUTSIDE RECORDS SUMMARY | 2024-07-08 22:04 | XMS_ITS | Encounter Summary ---
Author Organization [facility] Address [address] [place] [address] Care Team Providers Care Table And Desk Finisher Name Role Phone Ivan Echeverria P.A.-C. Primary Care Provider Encounter Details Date Type Department Care Team (Latest Contact Info) Description 05/26/2024 3:34 PM CDT - 05/26/2024 11:59 PM CDT Hospital Encounter Department of Laboratory Medicine in [place], [place] [address] [place] [address] Ivan Echeverria P.A.-C. [address] [place] [phone] Pancreatitis Acute (HCC) Discharge Disposition: Home or Self Care Social History Tobacco Use Types Packs/Day Years Used Date Smoking Tobacco: Every Day Cigarettes 0.3 16 Smokeless Tobacco: Never Comments:3-4 cigarettes per day Alcohol Use Standard Drinks/Week Comments Yes 1 (1 standard drink = 0.6 oz pur e alcohol) occas. [facility] Utilities Answer Date Recorded In the past 12 months has e [employer], gas, oil, or water [employer] threatened to shut off services in your [...] often do you attend chur ch or episcopalian services? 1 to 4 times per year 03/02/2023 Do you belong to any clubs o r organizations such as yazidism groups, unions, fraternal or athletic groups, or [...] Answer Date Recorded PHQ-2 Score 5 05/25/2024 [facility] [place] of Occupat ional Health - Occupational Stress [...] your living situation today? I have a [facility] place to live 03/10/2024 Education Answer Date Recorded What is the highest level of school you have completed or the highest degree you have received? Associate degree: occupational, technical, or vocational program 06/03/2021 Sex and Gender Information Value Date Recorded Sex Assigned at Female 02/03/2019 8:19 AM SEARCH ANALYST Gender Identity Female 02/03/2019 8:19 AM SEARCH ANALYST Sexual Orientation Straight 02/03/2019 8: 19 AM SEARCH ANALYST documented as of this encounter Medications at Time of Discharge Medication Sig Dispensed Refills Start Date End Date atorvastatin (LIPITOR) 20 mg tablet Take 1 [...] (seven) days. 6 mL 3 04/14/2024 04/14/2025 documented as of this encounter Plan of Treatment Upcoming Encounters Date Type Department Care Team (Late st Contact Info) Description 07/18/2024 3:00 PM CDT Appointment Department of Radiology in [place], [place] [address] [facility] [place] [phone] Ivan Echeverria P.A.-C. [address] [place] [phone] Discharge Disposition: Home or Self Care 07/20/2024 1:00 PM CDT Office Visit Department of Orthopedic Surgery in [place], [place] [address] [phone] Gage Loya M.D. [address] [place] [phone] documented as of this encounter Procedures Procedure Name Priority Date/Time Associated Diagnosis Comments BASIC METABOLIC PANEL, S/P Routine 05/26/2024 7:54 AM CDT Pancreatitis Acute (HCC) documented in this encounter Results * Basic Metabolic Panel (05/26/2024 7:54 AM [...] Ivan Echeverria P.A.-C. LAB BLOOD ADD- ON [facility] [address] [place] [address], [facility] [address] [facility] in [place] [address] [place] [address] documented in this encounter Visit Diagnoses Diagnosis Pancreatitis Acute (HCC) documented in this encounter Additional Health Concerns Assessment Noted Time PHQ-9 Depression Total Score: 11 024 3:35 PM CDT documented as of this encounter Care Teams Table And Desk Finisher Relationship Specialty Start Date End Date Ivan Echeverria P.A.-C. PCP - General 05/14/17 documented as of this encounter
--- OUTSIDE RECORDS SUMMARY | 2024-07-08 22:04 | XMS_ITS | Encounter Summary ---
Author Organization [facility] Address [address] [place] [address] Care Team Providers Care Staff Anesthetist Name Role Phone Ivan EcheverriaAReema-CReema Primary Care Provider Reason for Visit * MRI/CAT/PET Scan (Routine) - Closed Specialty Diagnoses / Procedures Referred By Contac t Referred To Contact Radiology Diagnoses Pancreatitis Acute (HCC) Procedures CT Abdomen without and with IV Contrast CT Abdomen without IV Contrast Ivan Echeverria P.AReema-CReema [address] [place] [address] [facility] Region Referral ID Status Reason Start Date Expiration Date Visits Re quested Visits Authorized [id number] Closed 05/26/2024 05/26/2025 1 1 Encounter Details Date Type Department Care Team (Latest Contact Info) Description 05/30/2024 7:41 AM CDT - 05/30/2024 11:59 PM CDT Hospital Encounter Department of Radiology in [place], [place] [address] [place] [address] Ivan Echeverria PReemaAReema-CReema [address] [place] [address] Pancreatitis Acute (HCC) Discharge Disposition: Home or Self Care Social History Tobacco Use Types Packs/Day Years Used Date Smoking Tobacco: Every Day Cigarettes 0.3 16 Smokeless Tobacco: Never Comments:3-4 cigarettes per day Alcohol Use Standard Drinks/Week Comments Yes 1 (1 standard drink = 0.6 oz pur e alcohol) occas. [facility] Utilities Answer Date Recorded In the past 12 months has th e electric, gas, oil, or water company threatened [...] week 03/02/2023 How often do you attend [facility] or nondenominational services? 1 to 4 times per year 03/02/2023 Do you belong to any clubs o r organizations such as islam groups, unions, fraternal or athletic groups, or [...] Answer Date Recorded PHQ-2 Score 5 05/25/2024 [facility] of Occupat ional Health - Occupational Stress [...] Date Recorded Dental: Regular Dentist Yes 03/02/20 23 Employment Answer Date Recorded Employment status Employed [...] Sex Assigned at Female 02/03/2019 8:19 AM OCCUPATIONAL THERAPY CO DIRECTOR Gender Identity Female 02/03/2019 8:19 AM OCCUPATIONAL THERAPY CO DIRECTOR Sexual Orientation Straight 02/03/2019 8: 19 AM OCCUPATIONAL THERAPY CO DIRECTOR documented as of this encounter Medications at [...] PM CDT Appointment Department of Radiology in [address] [phone] Ivan Echeverria P.A.-C. [address] [place] [address] Discharge Disposition: Home or Self Care 07/20/2024 1:00 PM CDT Office Visit Department of Orthopedic Surgery in [address] [phone] Gage Loya M.D. [address] [phone] documented as of this encounter Procedures Procedure Name Priority Date/Time Associated Diagnosis Comments CT ABDOMEN WITHOUT AND WITH IV CONTRAST RAD - Routine (most inpatients and all outpatients) 05/30/2024 8:18 AM CDT Pancreatitis Acute (HCC) documented in this encounter Results * CT Abdomen without and with IV [...] given the images provided Ivan Echeverria P.A.-C. [facility] CT PROCEDU RES documented in this encounter Visit Diagnoses Diagnosis Pancreatitis Acute (HCC) documented in this encounter Administered Medications Inactive Administered Medications - up to 3 most recent administrations Medication Order MAR Action Action Date Dose Rate Site iohexoL 300 mg iodine/mL solution 1-200 mL (Omnipaque) 1-200 mL, intravenous, Once in imaging, contrast, Starting on Thu05/30/24 at 0815, For 1 dose Given 05/30/2024 8:17 AM CDT 140 mL Left Antecubital sodium chloride 0.9 % flush 100-200 mL 100-200 mL, intravenous, Once in imaging, line care, Starting on Thu05/30/24 at 0815, For 1 dose Given 05/30/2024 8:17 AM CDT 100 mL Left Antecubital sodium chloride 0.9 % injection 10 mL 10 mL, intravenous, Once in imaging, line care, Starting on Thu05/30/24 at 0815, For 1 dose Given 05/30/2024 8:16 AM CDT 10 mL Left Antecubital documented in this encounter Additional Health Concerns Assessment Noted Time PHQ-9 Depression Total Score: 11 024 3:35 PM CDT documented as of this encounter Care Teams Staff Anesthetist Relationship Specialty Start Date End Date Ivan Echeverria P.A.-C. PCP - General 05/14/17 documented as of this encounter
--- OUTSIDE RECORDS SUMMARY | 2024-07-08 22:04 | XMS_ITS | Encounter Summary ---
Author Organization [facility] Address [address] [place] [address] Care Team Providers Care Broacher Name Role Phone Ivan Echeverria P.A.-C. Primary Care Provider Encounter Details Date Type Department Care Team (Latest Contact Info) Description 05/26/2024 7:53 AM CDT - 05/26/2024 3:33 PM CDT Hospital Encounter Department of Laboratory Medicine in [place], [place] [address] [place] [address] Ivan Echeverria P.A.-C. [address] [place] [phone] Pancreatitis Chronic (HCC) Discharge Disposition: Home or Self Care Social History Tobacco Use Types Packs/Day Years Used Date Smoking Tobacco: Every Day Cigarettes 0.3 16 Smokeless Tobacco: Never Comments:3-4 cigarettes per day Alcohol Use Standard Drinks/Week Comments Yes 1 (1 standard drink = 0.6 oz pur e alcohol) occas. [facility] Utilities Answer Date Recorded In the past 12 months has e [employer], gas, oil, or water [employer] threatened to shut off services in your [...] often do you attend chur ch or pentecostalism services? 1 to 4 times per year 03/02/2023 Do you belong to any clubs o r organizations such as gnosticism groups, unions, fraternal or athletic groups, or [...] Answer Date Recorded PHQ-2 Score 5 05/25/2024 [facility] of Occupat ional Health - Occupational Stress [...] your living situation today? I have a [facility] place to live 03/10/2024 Education Answer Date Recorded What is the highest level of school you have completed or the highest degree you have received? Associate degree: occupational, technical, or vocational program 06/03/2021 Sex and Gender Information Value Date Recorded Sex Assigned at Female 02/03/2019 8:19 AM PHOTOENGRAVING ETCHER APPRENTICE Gender Identity Female 02/03/2019 8:19 AM PHOTOENGRAVING ETCHER APPRENTICE Sexual Orientation Straight 02/03/2019 8: 19 AM PHOTOENGRAVING ETCHER APPRENTICE documented as of this encounter Medications at [...] PM CDT Appointment Department of Radiology in [place], [place] [address] [facility] [place] [phone] Ivan Echeverria P.A.-C. [address] [place] [phone] Discharge Disposition: Home or Self Care 07/20/2024 1:00 PM CDT Office Visit Department of Orthopedic Surgery in [place], [place] [address] [phone] Gage Loya M.D. [address] [place] [phone] documented as of this encounter Procedures Procedure Name Priority Date/Time Associated Diagnosis Comments LIPASE, S/P Routine 05/26/2024 8:00 AM CDT Pancreatitis Chronic (HCC) documented in this encounter Results * (ABNORMAL) Lipase (05/26/2024 8:00 AM CDT) Lipase, P 434(H) 13 - 60 U/L 05/26/2024 2:25 PM CDT OW[facility] Blood (Blood, Venous) 05/26/2024 8:00 AM CDT 05/26/2024 12:53 PM CDT Ivan Echeverria P.A.-C. LAB BLOOD ADD- ON [facility] [address] [place] [address], [facility] in [place] [address] [place] [address] documented in this encounter Visit Diagnoses Diagnosis Pancreatitis Chronic (HCC) documented in this encounter Additional Health Concerns Assessment Noted Time PHQ-9 Depression Total Score: 11 2 024 3:35 PM CDT documented as of this encounter Care Teams Broacher Relationship Specialty Start Date End Date Ivan Echeverria P.A.-C. PCP - General 05/14/17 documented as of this encounter
--- OUTSIDE RECORDS SUMMARY | 2024-07-08 22:04 | XMS_ITS | Encounter Summary ---
Author Organization [facility] Address [address] [place] [address] Care Team Providers Care Psych Rn Name Role Phone Ivan Echeverria P.A.-C. Primary Care Provider Reason for Referral * Outpatient (Routine) - Authorized Specialty Diagnoses / Procedures Referred By Contac t Referred To Contact Diagnoses Pancreatitis Acute (HCC) Ivan Echeverria P.A.-C. [address] [place] [address] Referral ID Status Reason Start Date Expiration Date V isits Requested Visits Authorized [id number] Authorized 05/27/2024 11/26/2025 1 1 Encounter Details Date Type Department Care Team (Late st Contact Info) Description 05/27/2024 Orders Only Department of Family Medicine, [facility], in [place], [place] [address] [place] [address] Ivan Echeverria P.A.-C. [address] [place] [address] Pancreatitis Acute (HCC) (Primary Dx) Social History Tobacco Use Types Packs/Day Years Used Date Smoking Tobacco: Every Day Cigarettes 0.3 16 Smokeless Tobacco: Never Comments:3-4 cigarettes per day Alcohol Use Standard Drinks/Week Comments Yes 1 (1 standard drink = 0.6 oz pur e alcohol) occas. [facility] Utilities Answer Date Recorded In the past [...] often do you attend chur ch or yazidism services? 1 to 4 times per year 03/02/2023 Do you belong to any clubs o r organizations such as yarsanism groups, unions, fraternal or athletic groups, or [...] Answer Date Recorded PHQ-2 Score 5 05/25/2024 [facility] of Occupat ional Health - Occupational [...] your living situation today? I have a [facility] place to live 03/10/2024 Education Answer Date Recorded What is the highest level of school you have completed or the highest degree you have received? Associate degree: occupational, technical, or vocational program 06/03/2021 Sex and Gender Information Value Date Recorded Sex Assigned at Female 02/03/2019 8:19 AM CAR RETARDER OPERATOR Gender Identity Female 02/03/2019 8:19 AM CAR RETARDER OPERATOR Sexual Orientation Straight 02/03/2019 8: 19 AM CAR RETARDER OPERATOR documented as of this encounter Plan of Treatment Upcoming Encounters Date Type Department Care Team (Late st Contact Info) Description 07/18/2024 3:00 PM CDT Appointment Department of Radiology in [place], [place] [address] [place] [phone] Ivan Echeverria P.A.-C. [address] [place] [phone] Discharge Disposition: Home or Self Care 07/20/2024 1:00 PM CDT Office Visit Department of Orthopedic Surgery in [place], [place] [address] [place] [phone] Gage Loya M.D. [address] [phone] documented as of this encounter Visit Diagnoses Diagnosis Pancreatitis Acute (HCC)- Primary documented in this encounter Additional Health Concerns Assessment Noted Time PHQ-9 Depression Total Score: 11 024 3:35 PM CDT documented as of this encounter Care Teams Psych Rn Relationship Specialty Start Date End Date Ivan Echeverria P.A.-C. PCP - General 05/14/17 documented as of this encounter
--- OUTSIDE RECORDS SUMMARY | 2024-07-08 22:04 | XMS_ITS | Encounter Summary ---
Author Organization [facility] Address [address] [place] [address] Care Team Providers Care Therapist'S Assistant Name Role Phone Ivan Echeverria P.A.-C. Primary Care Provider Encounter Details Date Type Department Care Team (Late st Contact Info) Description 05/26/2024 Orders Only Department of Family Medicine, [facility], in [place], [place] [address] [place] [address] Ivan Echeverria P.A.-C. [address] [place] [address] Pancreatitis Acute (HCC) (Primary Dx) Social History Tobacco Use Types Packs/Day Years Used Date Smoking Tobacco: Every Day Cigarettes 0.3 16 Smokeless Tobacco: Never Comments:3-4 cigarettes per day Alcohol Use Standard Drinks/Week Comments Yes 1 (1 standard drink = 0.6 oz pur e alcohol) occas. [facility] Utilities Answer Date Recorded In the past 12 months has e [employer], gas, oil, or water [employer] threatened to shut off services in your [...] often do you attend chur ch or evangelical services? 1 to 4 times per year 03/02/2023 Do you belong to any clubs o r organizations such as synagogue groups, unions, fraternal or athletic groups, or [...] Recorded PHQ-2 Score 5 05/25/2024 [facility] of Occupat ional Health - Occupational Stress [...] Sex Assigned at Female 02/03/2019 8:19 AM PROGRAM COORDINATOR EXECUTIVE EDUCATION Gender Identity Female 02/03/2019 8:19 AM PROGRAM COORDINATOR EXECUTIVE EDUCATION Sexual Orientation Straight 02/03/2019 8: 19 AM PROGRAM COORDINATOR EXECUTIVE EDUCATION documented as of this encounter Plan of Treatment Upcoming Encounters Date Type Department Care Team (Late st Contact Info) Description 07/18/2024 3:00 PM CDT Appointment Department of Radiology in [place], [place] [address] [place] [phone] Ivan Echeverria P.A.-C. [address] [place] [phone] Discharge Disposition: Home or Self Care 07/20/2024 1:00 PM CDT Office Visit Department of Orthopedic Surgery in [place] [address] [address] Gage Loya M.D. [address] [facility] [phone] documented as of this encounter Results * Basic Metabolic Panel [...] AM CDT 05/26/2024 3:43 PM CDT Ivan Echeverira P.A.-C. LAB BLOOD ADD- ON [facility] [address] [place] [address], [place] OWAT [facility] in [place] [address] [place] [address] documented in this encounter Visit Diagnoses Diagnosis Pancreatitis Acute (HCC)- Primary documented in this encounter Additional Health Concerns Assessment Noted Time PHQ-9 Depression Total Score: 11 05/25/ 024 3:35 PM CDT documented as of this encounter Care Teams Therapist'S Assistant Relationship Specialty Start Date End Date Ivan Echeverria P.A.-C. PCP - General 05/14/17 documented as of this encounter
--- OUTSIDE RECORDS SUMMARY | 2024-07-08 22:04 | XMS_ITS | Clinical Summary ---
Author Organization [facility] Address [address] [place] [address] Care Team Providers Care Security Professionals Name Role Phone Ivan Echeverria P.A.-C. Primary Care Provider Source Comments Patient records contain information from all sites at [facility]. For routine questions regarding patient records, call [phone] during business hours, M-F 8:00 AM - 5:00 PM Central Time. Record requests for emergency care only can be directed to [phone] at any time.[facility] Allergies Active Allergy Reactions Criticality Noted Date [...] mouth daily. 90 tablet 3 01/22/2024 Active DULoxetine (CYMBALTA) [address] capsule [...] times a day. 60 tablet 11 03/11/2024 Active semaglutide (Wegovy) 1 mg/0.5 mL pen [...] daily for 5 days. 5 tablet 06/28/2024 Active Problems Problem Noted Date Diagnosed Date [...] 12/30/19 14 01/14/2023 Overview (04/21/2017): HTN [Hypertension] Encounters Date Type Department Care Team Description 06/28/2024 11:27 AM CDT - 06/28/2024 11:59 PM CDT Hospital Encounter Department of Laboratory Medicine in [place], [place] [address] [place] [phone] Ivan Echeverria P.A.-C. Pancreatitis Chronic (HCC); Pancreatitis Acute (HCC) Discharge Disposition: Home or Self Care 06/28/2024 11:00 AM CDT Office Visit Department of Family Medicine, [facility], in [place], [place] [address] [place] [address] Geri Vargas M.D. Personal History Of Infectious And Parasitic Disease (COVID-19) (Primary Dx); Shortness Of Breath; Hypertension Essential Primary; Abuse Tobacco Smoking 06/23/2024 Orders Only Department of Family Medicine, [facility], in [place], [place] [address] [place] [address] Ivan Echeverria P.A.-C. 06/20/2024 Clinical Communication Department of Orthopedic Surgery in [place], [place] [address] [address] Angeli Foster P.A.-C., P.A. No Show (Appointment on 06/20) 06/03/2024 Clinical Communication Department of Family [facility], [facility], in [place], [place] [address] [place] [phone] Ivan Echeverria P.A.-C. Home BP 05/30/2024 7:41 AM CDT - 05/30/2024 11:59 PM CDT Hospital Encounter Department of Radiology in [place], [place] [address] [place] [address] Ivan Echeverria P.A.-C. Pancreatitis Acute (HCC) Discharge Disposition: Home or Self Care 05/27/2024 Orders Only Department of Family Medicine, [facility], in [place], [place] [address] [place] [address] Ivan Echeverria P.A.-C. Pancreatitis Acute (HCC) (Primary Dx) 05/26/2024 3:34 PM CDT - 05/26/2024 11:59 PM CDT Hospital Encounter Department of Laboratory Medicine in [place], [place] [address] [place] [address] Ivan Echeverria P.A.-C. Pancreatitis Acute (HCC) Discharge Disposition: Home or Self Care 05/26/2024 7:53 AM CDT - 05/26/2024 3:33 PM CDT Hospital Encounter Department of Laboratory Medicine in [address] [phone] Ivan Echeverria P.A.-C. Pancreatitis Chronic (HCC) Discharge Disposition: Home or Self Care 05/26/2024 Orders Only Department of [facility], in [address] [phone] Ivan Echeverria P.AReema-CReema Pancreatitis Acute (HCC) (Primary Dx) 05/26/2024 Orders Only Department of [facility], in [address] [phone] Ivan Echeverria P.A.-CReema Pancreatitis Acute (HCC) (Primary Dx) 05/25/2024 4:30 PM CDT Office Visit Department of [facility], in [address] [address] Ivan Echeverria P.AReema-CReema Anxiety (Primary Dx) 05/13/2024 11:00 AM CDT Office Visit Department of [facility], in [address] [phone] Ivan Echeverria P.A.-CReema Preoperative Exam (Primary Dx); Carpal Tunnel Syndrome Left; Bruxism (Sleep Related); Depression Major Recurrent Moderate (HCC); Hyperlipidemia; Hypertension Essential Primary; Sleep Apnea; Restless Leg Syndrome; Pancreatitis Chronic (HCC); Tobacco Use; Anxiety 04/19/2024 Refill Department of [facility], in [address] [address] Ivan Echeverria P.AReema-CReema Med Refill 04/14/2024 Orders Only Department of [facility], in [address] [address] Ivan Echeverria P.A.-C. Pancreatitis Chronic (HCC) (Primary Dx) 04/13/2024 4:01 PM CDT - 04/13/2024 11:59 PM CDT Hospital Encounter Department of Laboratory Medicine in [place], [place] [address] [place] [address] Ivan Echeverria P.A.-C. Arthralgia; Pancreatitis Chronic (HCC) Discharge Disposition: Home or Self Care 04/13/2024 Orders Only Department of Family Medicine, [facility], in [place], [place] [address] [place] [address] Ivan Echeverria P.A.-C. Arthralgia (Primary Dx); Pancreatitis Chronic (HCC) from Last 3 Months Immunizations Name Administration Dates Next Due DTaP [...] older)(PF) 09/03/2023,09/17/2022,10/18/2021,2019,08/25/2019,09/08/2018 rubella and mumps (discontinued) 07/18/1981 Family History Medical History Relation Name Comments Ulcerative colitis Brother Bashir Anxiety depression Daughter Alcohol abuse Father Adonay Emphysema Father Adonay Lung cancer Maternal Grandfather Ryan Dementia Maternal Grandmother Opal Hypertension Mother Myra Lung cancer Paternal Grandfather Kuldeep Dementia Paternal Grandmother Hollie No Known Problems Son Relation Name Status Comments Brother Bashir Daughter Alive Father Adonay Alive Maternal Grandfather Ryan Maternal Grandmother Opal Mother Myra Alive Paternal Grandfather Kuldeep Paternal Grandmother Hollie Son Alive Social History Tobacco Use Types Packs/Day Years Used Date Smoking Tobacco: Every Day Cigarettes 0.3 16 Smokeless Tobacco: Never Tobacco Cessation:Ready to Q uit: Not Asked; Counseling Given: Not Answered Comments:3-4 cigarettes per day Alcohol Use Standard Drinks/Week Comments Yes 1 (1 standard drink = 0.6 oz pur e alcohol) occas. [facility] Outitudeities Answer Date Recorded In the past 12 months has e [employer], gas, oil, or water [employer] threatened to shut off services in your [...] often do you attend chur ch or pentecostal services? 1 to 4 times per year 03/02/2023 Do you belong to any clubs o r organizations such as mandaen groups, unions, fraternal or athletic groups, or [...] Answer Date Recorded PHQ-2 Score 5 05/25/2024 [facility] of Occupat ional [facility] - Occupational Stress Questionnaire Answer Date [...] your living situation today? I have a [facility] place to live 03/10/2024 Education Answer Date Recorded What is the highest level of school you have completed or the highest degree you have received? Associate degree: occupational, technical, or vocational program 06/03/2021 Sex and Gender Information Value Date Recorded Sex Assigned at Female 02/03/2019 8:19 AM DRILLER PORTABLE Gender Identity Female 02/03/2019 8:19 AM DRILLER PORTABLE Sexual Orientation Straight 02/03/2019 8: 19 AM DRILLER PORTABLE Last Filed Vital Signs Vital Sign Reading [...] PM CDT Appointment Department of Radiology in [place], [place] [address] [place] [phone] Ivan Echeverria P.A.-C. [address] [place] [phone] Discharge Disposition: Home or Self Care 07/20/2024 1:00 PM CDT Office Visit Department of Orthopedic Surgery in [place], [place] [address] [phone] Gage Loya M.D. [address] [place] [address] Health Maintenance Due Date Last Done Comments CT Colonography 1976 Colonoscopy 1976 FIT 1976 HIV Screening 1976 Hepatitis C Screening 1976 COVID-19 Vaccine (2022- 4 season) 2023 04/19/2021, 03/22/2021 Mammogram 04/08/2024 04/08/2023, 01/30, 02/11/2017 Influenza Vaccine (#1) 2024 , 09/17/2022, 10/18/2021, Additional history exists Depression Monitoring (PHQ-9) 09/24/2024 05/25/2024 Office Visit for Blood Press ure Check / Re-check 09/28/2024 06/28/2024 Tobacco Cessation counseling 05/25/2025 05/25/2024 Creatinine Level (Kidney Fun ction Test) 06/23/2025 06/23/2024, 05/26/2024, 01/21/2024, Additional history exists Potassium Level 06/23/2025 06/23/2024, 05/01, 01/21/2024, Additional history exists Sodium Level 06/23/2025 06/23/2024, 05/01, 01/21/2024, Additional history exists Visit: Chronic Disease, age 18+ 06/28/2025 Cologuard 05/22/2026 05/22/2023 Colorectal Cancer Screening 05/22/2026 Cervical Cancer Screening 02/26/20272021, 02/26/2022, 02/20/2017, Additional history exists Fasting Glucose for Diabetes Screening 06/23/2027 06/23/2024, 05/26/2024, 01/21/2024, Additional history exists Lipid (Cholesterol) Screening 01/21/2029, 01/12/2023, 01/08/2022, Additional history exists DTaP,Tdap,and Td Vaccines (7 - Td or Tdap) 01/11/2034 01/11/2024, 12/30/2013, 11/30/2003, Additional history exists Hepatitis B Vaccines Completed 05/23/2022, 01/09/2022, 02/04/2019, Additional history exists Pneumococcal vaccine (0-64 years) Completed 022 Medical Devices Implanted Type Area Insurance Account Representative Device Identifier Shelf Expiration Date Model / [...] LIPID PANEL, S Routine 01/21/2024 7:45 AM DRILLER PORTABLE Hyperlipidemia Hypertension Essential Primary COLOGUARD Routine 05/22/2023 [...] Ivan Echeverria P.A.-C. LAB BLOOD ADD- ON [facility] [address] [place] [address], [facility] OWAT [facility] in [place] [address] [place] [address] * CT Abdomen without and with IV [...] given the images provided Ivan Echeverria P.A.-C. [facility] CT PROCEDU RES * Basic Metabolic Panel [...] Ivan Echeverria P.A.-C. LAB BLOOD ADD- ON [facility] [address] [place] [address], [facility] OWAT [facility] in [place] [address] [place] [address] * Quantitative M-protein Study (04/13/2024 4:06 PM CDT) Immunoglobulin A (IgA), S 195 61 - 356 mg/dL 04/14/2024 9:40 AM CDT [facility] Immunoglobulin M (IgM), S 67 37 - 286 mg/dL 04/14/2024 9:40 AM CDT [facility] Immunoglobulin G (IgG), S 1110 767 - 1590 mg/dL 04/14/2024 9:40 AM CDT [facility] Therapeutic Antibody Administered? Unspecified 04/14/2024 6:19 AM CDT [facility] Flag, M-protein Isotype Negative Negative 04/15/2024 8:08 AM CDT [facility] QMPTS Interpretation No monoclonal protein detected. 04/15/2024 8:08 AM CDT [facility] Comment: ----ADDITIONAL INFORMATION---- The submitted sample was assayed by five separate immunopurifications for IgG, IgA, IgM, kappa and lambda. ??The result reflects the findings of either no monoclonal protein detected or those monoclonal immunoglobulins that were detected. This test was developed and its performance characteristics determined by [facility] in a manner consistent with CLIA requirements. This test has not been cleared or approved by the U.S. Food and Drug Administration. Blood (Blood, Venous) 04/13/2024 4:06 PM CDT 04/14/2024 6:16 AM CDT Narrative [facility] - 04/15/2024 8:08 AM CDT Specimen Information: Specimen ID: [id number] Specimen Type: Blood Specimen Collection Start Date: 04/13/2024 ??4:06 PM Specimen Received Date: 04/14/2024 ??6:16 AM Specimen ID: [id number] Specimen Type: Blood Specimen Collection Start Date: 04/13/2024 ??4:06 PM Specimen Received Date: 04/14/2024 ??6:19 AM Ivan Echeverria P.A.-C. LAB BLOOD ADD- ON [facility] [address] [address] [facility] [address] [address] [facility] [address] [facility] [place] [address] * (ABNORMAL) Lipid Panel (01/21/2024 7:45 AM DRILLER PORTABLE) Triglycerides 158(H) mg/dL 01/21/2024 1:56 PM DRILLER PORTABLE OWAT Comment: ----REFERENCE VALUE---- Normal: <150 mg/dL Borderline High: 150-199 mg/dL High: 200-499 mg/dL Very High: > or =500 mg/dL Cholesterol, Total 169 mg/dL 2023 1:56 PM DRILLER PORTABLE OWAT Comment: ----REFERENCE VALUE---- Desirable: < 200 mg/dL Borderline High: 200 - 239 mg/dL High: > or = 240 mg/dL Cholesterol, LDL, Calculated 95 mg/dL 01/21/2024 1:56 PM DRILLER PORTABLE OWAT Comment: ----REFERENCE VALUE---- Desirable: <100 mg/dL Above Desirable: 100-129 mg/dL Borderline High: 130-159 mg/dL High: 160-189 mg/dL Very High: >=190 mg/dL ----ADDITIONAL INFORMATION---- LDL cholesterol calculated using the Multani/NIH equation. Cholesterol, HDL 47(L) >=50 mg/dL 01/21/20 1:56 PM DRILLER PORTABLE OWAT Cholesterol, Non-HDL, Calculated 122 mg/dL 01/21/2024 1:56 PM DRILLER PORTABLE OWAT Comment: ----REFERENCE VALUE---- Desirable: <130 mg/dL Above Desirable: 130-159 mg/dL Borderline High: 160-189 mg/dL High: 190-219 mg/dL Very High: > or =220 mg/dL Fasting (8 HR or more) No 01/21/2024 1:27 PM DRILLER PORTABLE OWAT Blood (Blood, Venous) 01/21/2024 7:45 AM DRILLER PORTABLE 01/21/2024 1:27 PM DRILLER PORTABLE Ivan Echeverria P.A.-C. LAB BLOOD ADD- ON [facility] [address] [place] [address], [facility] OWAT [facility] in [place] [address] [place] [address] * Cologuard - Sent Out Lab (05/22/2023 [...] screened with both Cologuard and colonoscopy. (Dede Elias al, N Engl J Med 2014;370(14):6284-4931) The normal value (reference range) for this assay is negative. COLOGUARD RE-SCREENING RECOMMENDATION: Periodic colorectal cancer screening is an important part of preventive healthcare for asymptomatic individuals at average risk for colorectal cancer. ??Following a negative Cologuard result, the [place] [employer] Society and U.S. Multi-Society Task Force screening guidelines recommend a Cologuard re-screening interval of 3 years. References: [place] [employer] Guideline for Colorectal Cancer Screening: https://www.cancer.org/cancer/xtozm-ovntjv-kfwbao/detection- diagnosis-staging/acs-recommendations.html.; Gordy LUCAS, Collins NICHOLAS, Valerie BrownK, Colorectal Cancer Screening: Recommendations for Physicians and Patients from the U.S. Multi-Society Task Force on Colorectal Cancer Screening , Am J Gastroenterology 2017; 112:7142-7942. TEST DESCRIPTION: Composite algorithmic analysis of stool [...] screened with both Cologuard and colonoscopy. (Dede Elias al, N Engl J Med 2014;370(14):9753-6284.) Cologuard may produce a false negative or false positive result (no colorectal cancer or precancerous polyp present at colonoscopy follow up). A negative Cologuard test result does not guarantee the absence of CRC or advanced adenoma (pre-cancer). The current Cologuard screening interval is every 3 years. ([place] [employer] Society and U.S. Multi-Society Task Force). Cologuard performance data in a 10,000 patient pivotal study using colonoscopy as the reference method can be accessed at the following location: www.[employer]/results. Additional description of the Cologuard test process, warnings and precautions can be found at www.Birdbox[employer]uard.Sanitors. Stool (Stool) 05/22/2023 4:0 5 AM CDT 05/23/2023 5:47 PM CDT Ivan Echeverria P.A.-C. LAB BODY FLUID S AND STOOLS ORDERABLES [employer] [address] [place], [place] [id number] [employer] [address] [place] [address], [address] [place] [address] * BI Breast Screening Bilateral with Tomosynthesis [...] INDICATION: ??Screening mammogram. COMPARISON: ??Dating back to 2016 DENSITY: ??c. The breast(s) are heterogeneously dense, which may obscure small masses. FINDINGS: ??No mammographic findings of malignancy. Procedure Note Ray Linares M.D. - 04/08/2023 EXAM: BI BREAST SCREENING BILATERAL WITH TOMOSYNTHESIS Current study was evaluated with a Computer Aided Detection (CAD) system. INDICATION: Screening mammogram. COMPARISON: Dating back to 2016 DENSITY: c. The breast(s) are heterogeneously dense, which may obscuresmall masses. FINDINGS: No mammographic findings of malignancy. IMPRESSION: Negative. RECOMMENDATION: Annual Screening Mammogram Annual screening mammogram. ASSESSMENT: BI-RADS: 1: Negative. Ivan Echeverria P.A.-C. G BI PROCEDU RES * HPV with Genotyping, PCR, ThinPrep (02/26/2022 4:41 PM CDT) HPV with Genotyping, ThinPrep, PCR Negative Negative 02/27/2022 2:13 PM CDT TO Comment: Negative for high risk HPV by nucleic acid amplification. ??The following high risk HPV types were not detected: 16, 18, 31, 33, 35, 39, 45, 51, 52, 56, 58, 59, 66, and 68 Varies 02/26/2022 4:41 PM CDT 02/27/2022 7:01 AM CDT Matthew Mckinney Jr., M.D. LAB MICROBIOLO GY - GENERAL ORDERABLES [facility] [address] [place] [address], [facility] in [address] [address] from Last 3 Months or Most Recently Relevant to Health Maintenance Care Teams Security Professionals Relationship Specialty Start Date End Date Ivan Echeverria P.A.-C. PCP - General 05/14/17
--- OUTSIDE RECORDS SUMMARY | 2024-07-08 22:04 | XMS_ITS | Encounter Summary ---
Author Organization [facility] Address [address] [place] [address] Care Team Providers Care Finished Garment Inspector Name Role Phone Ivan Echeverria P.A.-C. Primary Care Provider Reason for Visit * Reason Onset Date Comments No Show 06/20/2024 Appointment on Encounter Details Date Type Department Care Team (Latest Contact Info) Description 06/20/2024 Clinical Communication Department of Orthopedic Surgery in [place], [place] [address] [phone] Angeli Foster P.A.-C., P.A. [address] [phone] No Show (Appointment on 06/20) Social History Tobacco Use Types Packs/Day Years Used Date Smoking Tobacco: Every Day Cigarettes 0.3 16 Smokeless Tobacco: Never Comments:3-4 cigarettes per day Alcohol Use Standard Drinks/Week Comments Yes 1 (1 standard drink = 0.6 oz pur e alcohol) occas. [facility] Utilities Answer Date Recorded In the past 12 months has e electric, gas, oil, or water company [...] week 03/02/2023 How often do you attend [facility] or holiness services? 1 to 4 times per year 03/02/2023 Do you belong to any clubs o r organizations such as uatsdin groups, unions, fraternal or athletic groups, or [...] Answer Date Recorded PHQ-2 Score 5 05/25/2024 [facility] of Occupat ional Health - Occupational Stress [...] your living situation today? I have a [facility] place to live 03/10/2024 Education Answer Date Recorded What is the highest level of school you have completed or the highest degree you have received? Associate degree: occupational, technical, or vocational program 06/03/2021 Sex and Gender Information Value Date Recorded Sex Assigned at Female 02/03/2019 8:19 AM GLOBAL PROFESSIONAL Gender Identity Female 02/03/2019 8:19 AM GLOBAL PROFESSIONAL Sexual Orientation Straight 02/03/2019 8: 19 AM GLOBAL PROFESSIONAL documented as of this encounter Miscellaneous Notes * Telephone Encounter - Nilam Cleveland - 06/20/2024 10:05 AM CDT Patient was scheduled on 06/20/24 at 10 am with Deepa Foster PA-C for a 2 week post op appt for a Left Carpal Tunnel Release. Called patient and left a message to call clinic back. Patient will need to reschedule if she is having pain or still has sutures in. documented in this encounter Plan of Treatment Upcoming Encounters Date Type Department Care Team (Late st Contact Info) Description 07/18/2024 3:00 PM CDT Appointment Department of Radiology in [address] [phone] Ivan Echeverria P.A.-C. [address] [place] [address] Discharge Disposition: Home or Self Care 07/20/2024 1:00 PM CDT Office Visit Department of Orthopedic Surgery in [place], [place] [address] [place] [address] Gage Loya M.D. [address] [phone] documented as of this encounter Visit Diagnoses Not on filedocumented in this encounter Additional Health Concerns Assessment Noted Time PHQ-9 Depression Total Score: 11 024 3:35 PM CDT documented as of this encounter Care Teams Finished Garment Inspector Relationship Specialty Start Date End Date Ivan Echeverria P.A.-C. PCP - General 05/14/17 documented as of this encounter
--- OUTSIDE RECORDS SUMMARY | 2024-07-08 22:04 | XMS_ITS | Encounter Summary ---
Author Organization [facility] Address [address] [place] [address] Care Team Providers Care Professional Development Director Name Role Phone Ivan Echeverria P.A.-C. Primary Care Provider Reason for Visit * Reason Onset Date Comments Home BP 06/03/2024 Encounter Details Date Type Department Care Team (Late st Contact Info) Description 06/03/2024 Clinical Communication Department of Family Medicine, [facility], in [place], [place] [address] [place] [address] Ivan Echeverria P.A.-C. [address] [place] [phone] Home BP Social History Tobacco Use Types Packs/Day Years Used Date Smoking Tobacco: Every Day Cigarettes 0.3 16 Smokeless Tobacco: Never Comments:3-4 cigarettes per day Alcohol Use Standard Drinks/Week Comments Yes 1 (1 standard drink = 0.6 oz pur e alcohol) occas. [facility] Utilities Answer Date Recorded In the [...] How often do you attend chur or amish services? 1 to 4 times per year 03/02/2023 Do you belong to any clubs o r organizations such as protestant groups, unions, fraternal or athletic groups, or [...] Answer Date Recorded PHQ-2 Score 5 05/25/2024 [facility] [place] of Occupat ional Health - Occupational Stress [...] your living situation today? I have a [facility] place to live 03/10/2024 Education Answer Date Recorded What is the highest level of school you have completed or the highest degree you have received? Associate degree: occupational, technical, or vocational program 06/03/2021 Sex and Gender Information Value Date Recorded Sex Assigned at Female 02/03/2019 8:19 AM SERVICE TECH Gender Identity Female 02/03/2019 8:19 AM SERVICE TECH Sexual Orientation Straight 02/03/2019 8: 19 AM SERVICE TECH documented as of this encounter Last Filed Vital Signs Vital Sign Reading Time Taken Comments Blood Pressure 134/82 06/02/2024 11:07 AM CDT Mike lipscomb BP Pulse - - Temperature - - Respiratory Rate - - Oxygen Saturation - - Inhaled Oxygen Concentration - - Weight - - Height - - Body Mass Index - - documented in this encounter Miscellaneous Notes * Telephone Encounter - Marlyn Soni RReemaNReema - 06/03/2024 11:08 AM CDT Patient relayed home BP & HR. Entered into flow sheet. documented in this encounter Plan of Treatment Upcoming Encounters Date Type Department Care Team (Late st Contact Info) Description 07/18/2024 3:00 PM CDT Appointment Department of Radiology in [place], [place] [address] [place] [address] Ivan Echeverria P.A.-Julia. [address] [place] [phone] Discharge Disposition: Home or Self Care 07/20/2024 1:00 PM CDT Office Visit Department of Orthopedic Surgery in [place], [place] [address] [place] [address] Gage Loya M.D. [address] [phone] documented as of this encounter Visit Diagnoses Not on filedocumented in this encounter Additional Health Concerns Assessment Noted Time PHQ-9 Depression Total Score: 11 05/25/ 024 3:35 PM CDT documented as of this encounter Care Teams Professional Development Director Relationship Specialty Start Date End Date Ivan Echeverria PReemaAReema-C. PCP - General 05/14/17 documented as of this encounter
--- OUTSIDE RECORDS SUMMARY | 2024-07-08 22:05 | XMS_ITS | Encounter Summary ---
Author Organization [facility] Address [address] [place] [address] Care Team Providers Care Boiler Plant Operator Name Role Phone Ivan Echeverria P.A.-C. Primary Care Provider Encounter Details Date Type Department Care Team (Late st Contact Info) Description 01/21/2023 Orders Only RST [facility] [address] [place] [phone] [facility], Provider Screening Test Laboratory Social History Tobacco Use Types Packs/Day Years Used Date Smoking Tobacco: Every Day Cigarettes 0.3 16 Smokeless Tobacco: Never Comments:3-4 cigarettes per day Alcohol Use Standard Drinks/Week Comments Yes 1 (1 standard drink = 0.6 oz pur e alcohol) occas. Humiliation, Afraid, Rape, and Kick questionnair e Answer Date Recorded Within the last year, have y ou been afraid of your partner or ex-partner? No 08/21/2022 Within the last year, have y ou been humiliated or emotionally abused in other ways by your partner or ex-partner? No Within the last year, have y ou been kicked, hit, slapped, or otherwise physically hurt by your partner or ex-partner? No 08/21/2022 Within the last year, have y ou been raped or forced to have any kind of sexual activity by your partner or ex-partner? No 08/21/2022 Social Connection and Isolation Panel [NHANES] A nswer Date Recorded In a typical week, how many times do you talk on the phone with family, friends, or neighbors? Twice a week 08/21/20 How often do you get togethe r with friends or relatives? Once a week 08/21/2022 How often do you attend chur ch or pentecostalism services? 1 to 4 times per year 08/21/2022 Do you belong to any clubs o r organizations such as quaker groups, unions, fraternal or athletic groups, or school groups? No 08/21/2022 How often do you attend meet ings of the clubs or organizations you belong to? Patient declined 08/21/2022 Are you , , di vorced, , never , or living with a partner? 08/21/2022 AUDIT-C Answer Date Recorded Q1: How often do you have a drink containing alc ohol? Monthly or less 08/21/2022 Q2: How many drinks containi ng alcohol do you have on a typical day when you are drinking? 1 or 2 08/21/2022 Q3: How often do you have si x or more drinks on one occasion? Less than monthly 08/21/2022 Overall Financial Resource Strain (CARDIA) Answe r Date Recorded How hard is it for you to pa y for the very basics like food, housing, medical care, and heating? Not hard at all 08/21/2022 PHQ-2 Answer Date Recorded PHQ-2 Score 3 12/25/2022 [facility] of Occupat ional Health - Occupational Stress Questionnaire Answer Date Recorded Do you feel stress - tense, restless, nervous, or anxious, or unable to sleep at night because your mind is troubled all the time - these days? To some extent 08/21/2022 Exercise Vital Sign Answer Date Recorde d On average, how many days pe r week do you engage in moderate to strenuous exercise (like a brisk walk)? Patient declined On average, how many minutes do you engage in exercise at this level? Patient declined 08/21/2022 Hunger Vital Sign Answer Date Recorded Within the past 12 months, y ou worried that your food would run out before you got the money to buy more. Never true 08/21/20 Within the past 12 months, t he food you bought just didn't last and you didn't have money to get more. Never true 08/21/2022 PRAPARE - Transportation Answer Date Re corded In the past 12 months, has l ack of transportation kept you from medical appointments or from getting medications? No 08/01 In the past 12 months, has l ack of transportation kept you from meetings, work, or from getting things needed for daily living? No 08/21/2022 Housing Stability Vital Sign Answer Stephon e Recorded In the last 12 months, was t here a time when you were not able to pay the mortgage or rent on time? No 08/21/2022 In the last 12 months, how many places have you lived? 1 08/21/2022 In the last 12 months, was t here a time when you did not have a steady place to sleep or slept in a intermediate (including now)? No 08/21/2022 Depression Answer Date Recor ded PHQ-9 Total Score (max 27) 8 12/25 Nutrition Answer Date Recorded Nutrition: EVOO Fat Source Yes 08/21 On average, how many serving s of fruits and vegetables do you eat per day (serving size is equal to 1 cup or approximately the size of a tennis ball)? 2-3 08/21/2022 Dental Answer Date Recorded Dental: Regular Dentist No 02/14/20 Employment Answer Date Recorded Employment status Employed and actively working without restrictions 08/21/2022 Education Answer Date Recorded What is the highest level of school you have completed or the highest degree you have received? Associate degree: occupational, technical, or vocational program 06/03/2021 Sex and Gender Information Value Date Recorded Sex Assigned at Female 02/03/2019 8:19 AM WEIGHT CALCULATOR Gender Identity Female 02/03/2019 8:19 AM WEIGHT CALCULATOR Sexual Orientation Straight 02/03/2019 8: 19 AM WEIGHT CALCULATOR documented as of this encounter Plan of Treatment Upcoming Encounters Date Type Department Care Team (Late st Contact Info) Description 07/18/2024 3:00 PM CDT Appointment Department of Radiology in [place], [place] [address] [place] [phone] Ivan Echeverria P.A.-C. [address] [place] [phone] Discharge Disposition: Home or Self Care 07/20/2024 1:00 PM CDT Office Visit Department of Orthopedic Surgery in [place], [place] [address] [facility] [place] [phone] Gage Loya M.D. [address] [place] [phone] documented as of this encounter Visit Diagnoses Diagnosis Screening Test Laboratory documented in this encounter Additional Health Concerns Infection Onset Date Last Indicated Resolved Time COVID19 01/21/2023 01/21/2023 02/10/2023 5:29 AM CDT COVID19 Pending 12/30/2023 12/30/2023 12/30/2023 2 :06 PM WEIGHT CALCULATOR Assessment Noted Time PHQ-9 Depression Total Score: 8 12/25/19 23 3:01 PM WEIGHT CALCULATOR documented as of this encounter Care Teams Boiler Plant Operator Relationship Specialty Start Date End Date Ivan Echeverria P.A.-C. PCP - General 05/14/17 documented as of this encounter
--- OUTSIDE RECORDS SUMMARY | 2024-07-08 22:05 | XMS_ITS | Encounter Summary ---
Author Organization [facility] Address [address] [place] [address] Care Team Providers Care Global Head Advertiser Solutions Name Role Phone Ivan Echeverria P.A.-C. Primary Care Provider Encounter Details Date Type Department Care Team (Late st Contact Info) Description 04/13/2024 Orders Only Department of Family Medicine, [facility], in [place], [place] [address] [place] [address] Ivan Echeverria P.A.-C. [address] [place] [phone] Arthralgia (Primary Dx); Pancreatitis Chronic (HCC) Social History Tobacco Use Types Packs/Day Years Used Date Smoking Tobacco: Every Day Cigarettes 0.3 16 Smokeless Tobacco: Never Comments:3-4 cigarettes per day Alcohol Use Standard Drinks/Week Comments Yes 1 (1 standard drink = 0.6 oz pur e alcohol) occas. [facility] Utilities Answer Date Recorded In the past 12 months has e electric, gas, oil, or water [employer] threatened to shut off services in your [...] any clubs o r organizations such as latter-day groups, unions, fraternal or athletic groups, or [...] 06/03/2023 PHQ-2 Answer Date Recorded PHQ-2 Score 1 12/09/2023 [facility] [place] of Occupat ional Health - Occupational Stress [...] Recor ded PHQ-9 Total Score (max 27) 5 12/09 Nutrition Answer Date Recorded On average, how [...] your living situation today? I have a [facility] place to live 03/10/2024 Education Answer Date Recorded What is the highest level of school you have completed or the highest degree you have received? Associate degree: occupational, technical, or vocational program 06/03/2021 Sex and Gender Information Value Date Recorded Sex Assigned at Female 02/03/2019 8:19 AM FAMILY MEDICINE PHYSICIAN ASSISTANT Gender Identity Female 02/03/2019 8:19 AM FAMILY MEDICINE PHYSICIAN ASSISTANT Sexual Orientation Straight 02/03/2019 8: 19 AM FAMILY MEDICINE PHYSICIAN ASSISTANT documented as of this encounter Plan of Treatment Upcoming Encounters Date Type Department Care Team (Late st Contact Info) Description 07/18/2024 3:00 PM CDT Appointment Department of Radiology in [place], [place] [address] [place] [phone] Ivan Echeverria P.A.-C. [address] [place] [phone] Discharge Disposition: Home or Self Care 07/20/2024 1:00 PM CDT Office Visit Department of Orthopedic Surgery in [place] [address] [address] [phone] Gage Loya M.D. [address] [place] [address] documented as of this encounter Results * (ABNORMAL) Lipase (04/13/2024 4:06 PM CDT) Lipase, P 126(H) 13 - 60 U/L 04/13/2024 6:09 PM CDT [facility] Blood (Blood, Venous) 04/13/2024 4:06 PM CDT 04/13/2024 5:54 PM CDT Ivan Echeverria P.A.-C. LAB BLOOD ADD- ON [facility] [address] [place] [address], [facility] [place] [address] [place] [address] * Quantitative M-protein Study (04/13/2024 4:06 PM [...] developed and its performance characteristics determined by [facility] in a manner consistent with CLIA requirements. This test has not been cleared or approved by the U.S. Food and Drug Administration. Blood (Blood, Venous) 04/13/2024 4:06 PM CDT 04/14/2024 6:16 AM CDT Narrative [facility] - 04/15/2024 8:08 AM CDT Specimen Information: Specimen ID: [id number] Specimen Type: Blood Specimen Collection Start Date: 04/13/2024 ??4:06 PM Specimen Received Date: 04/14/2024 ??6:16 AM Specimen ID: [id number] Specimen Type: Blood Specimen Collection Start Date: 04/13/2024 ??4:06 PM Specimen Received Date: 04/14/2024 ??6:19 AM Ivan Echeverria P.A.-C. LAB BLOOD ADD- ON [facility] [address] [place] [address] [facility] [address] [place] [address] [place] [address] [place] [facility] [place] [address] documented in this encounter Visit Diagnoses Diagnosis Arthralgia- Primary Pancreatitis Chronic (HCC) Arthralgia Pancreatitis Chronic (HCC) documented in this encounter Additional Health Concerns Assessment Noted Time PHQ-9 Depression Total Score: 5 12/09/19 24 11:38 AM FAMILY MEDICINE PHYSICIAN ASSISTANT documented as of this encounter Care Teams Global Head Advertiser Solutions Relationship Specialty Start Date End Date vIan Echeverria P.A.-C. PCP - General 05/14/17 documented as of this encounter
--- OUTSIDE RECORDS SUMMARY | 2024-07-08 22:05 | XMS_ITS | Encounter Summary ---
Author Organization [facility] Address [address] [place] [address] Care Team Providers Care Absence Management Consultant Name Role Phone Ivan Echeverria P.A.-C. Primary Care Provider Reason for Visit * Reason Comments Follow-up Encounter Details Date Type Department Care Team (Late st Contact Info) Description 05/25/2024 4:30 PM CDT Office Visit Department of Family Medicine, [facility], in [place], [place] [address] [place] [address] Ivan Echeverria P.A.-C. [address] [place] [phone] Anxiety (Primary Dx) Social History Tobacco Use Types Packs/Day Years Used Date Smoking Tobacco: Every Day Cigarettes 0.3 16 Smokeless Tobacco: Never Tobacco Cessation:Ready to Q uit: No; Counseling Given: Yes Comments:3-4 cigarettes per day Alcohol Use Standard Drinks/Week Comments Yes 1 (1 standard drink = 0.6 oz pur e alcohol) occas. [facility] Utilities Answer Date Recorded In the past 12 months has e [employer], gas, oil, or water company threatened to [...] How often do you attend chur or baptism services? 1 to 4 times per year 03/02/2023 Do you belong to any clubs o r organizations such as confucianist groups, unions, fraternal or athletic groups, or [...] Answer Date Recorded PHQ-2 Score 5 05/25/2024 [facility] [place] of Occupat ional Health - Occupational Stress [...] your living situation today? I have a [facility] place to live 03/10/2024 Education Answer Date Recorded What is the highest level of school you have completed or the highest degree you have received? Associate degree: occupational, technical, or vocational program 06/03/2021 Sex and Gender Information Value Date Recorded Sex Assigned at Female 02/03/2019 8:19 AM LAP RUNNER Gender Identity Female 02/03/2019 8:19 AM LAP RUNNER Sexual Orientation Straight 02/03/2019 8: 19 AM LAP RUNNER documented as of this encounter Last Filed Vital Signs Vital Sign Reading Time Taken Comments Blood Pressure 147/101 05/25/2024 3:49 PM CDT Pulse 80 05/25/2024 3:33 PM CDT Temperature - - Respiratory Rate 16 05/25/2024 3:33 PM CDT Oxygen Saturation - - Inhaled Oxygen Concentration - - Weight - - Height - - Body Mass Index - - documented in this encounter Progress Notes * Ivan Echeverria P.A.-C., Laura. - 05/25/2024 4:30 PM CDT SUBJECTIVE CHIEF COMPLAINT / REASON FOR VISIT Cammie Figueroa is a 49 y.o. female who presents for evaluation of Follow-up. HISTORY OF PRESENT ILLNESS Cammie presents today with anxiety. She has a longstanding history of anxiety but recently has been struggling. She has had many factors that play a part in this. Her mother has been ill. She has a son who is getting and there has been some difficulty with her ex- in this situation. She also has a son who she has raised that is not biologic. He has gone off to college and has recently been disrespectful which has been bothering her. All of these events seemed to have happened recently and she has been having a difficult day today. She has not been sleeping well. She is continuedeither other medications which have been working fairly well in the past. She has tried benzodiazepines which make her quite drowsy. She says she would just like to get a good night's sleep. OBJECTIVE Vitals: 05/25/24 1533 05/25/24 1549 BP: (!) 148/101 (!) 147/101 BP Location: Right arm Right arm Patient Position: Sitting Sitting Cuff Size: Large Large Pulse: 80 Resp: 16 There is no height or weight on file to calculate BMI. PHYSICAL EXAMINATION In general she appears sad she was tearful throughout our visit. We had a long discussion but otherwise no further physical exam was done ASSESSMENT / PLAN #1 Anxiety We had a good discussion about this. There are many exogenous factors playing a part in this. For now I am going to give her a trial of some lorazepam to use tonight for sleeping. I do not want her to use this routinely but will try it this evening and get her a good night sleep. She is going to work through some things with her children and some of these exogenous anxiety producing factors will hopefully improve. She does have good support at home. I am happy to discuss this further with her if she needs any help. If she has any worsening of her symptoms she will let us know otherwise she will continue on her current medications but try some lorazepam tonight for sleeping. We also could consider some further therapy as this may be beneficial. Ivan Echeverria P.A.-C., P.A. documented in this encounter Plan of Treatment Upcoming Encounters Date Type Department Care Team (Late st Contact Info) Description 07/18/2024 3:00 PM CDT Appointment Department of Radiology in [address] [phone] Ivan Echeverria P.A.-C. [address] [place] [address] Discharge Disposition: Home or Self Care 07/20/2024 1:00 PM CDT Office Visit Department of Orthopedic Surgery in [address] [phone] Gage Loya M.D. [address] [phone] documented as of this encounter Visit Diagnoses Diagnosis Anxiety- Primary documented in this encounter Additional Health Concerns Assessment Noted Time PHQ-9 Depression Total Score: 11 024 3:35 PM CDT documented as of this encounter Care Teams Absence Management Consultant Relationship Specialty Start Date End Date Ivan Echeverria P.A.-C. PCP - General 05/14/17 documented as of this encounter
--- OUTSIDE RECORDS SUMMARY | 2024-07-08 22:05 | XMS_ITS | Encounter Summary ---
Author Organization [facility] Address [address] [place] [address] Care Team Providers Care Spray Machine Operator Name Role Phone Ivan Echeverria P.A.-C. Primary Care Provider Reason for Referral * Outpatient (Routine) - Closed Specialty Diagnoses / Procedures Referred By Alina flaherty Referred To Contact Orthopedic Surgery Diagnoses Carpal Tunnel Syndrome Left Geri Vargas M.D. [address] [place] [address] [facility] Region Referral ID Status Reason Start Date Expiration Date Visits Re quested Visits Authorized [id number] Closed 03/01/2024 08/31/2025 1 1 Encounter Details Date Type Department Care Team (Late st Contact Info) Description 03/01/2024 Orders Only Department of Family Medicine, [facility], in [place], [place] [address] [place] [address] Geri Vargas M.D. [address] [place] [phone] Carpal Tunnel Syndrome Left (Primary Dx) Social History Tobacco Use Types Packs/Day Years Used Date Smoking Tobacco: Every Day Cigarettes 0.3 16 Smokeless Tobacco: Never Comments:3-4 cigarettes per day Alcohol Use Standard Drinks/Week Comments Yes 1 (1 standard drink = 0.6 oz pur e alcohol) occas. [facility] Utilities Answer Date Recorded In the past [...] How often do you attend chur or roman catholic services? 1 to 4 times per year 03/02/2023 Do you belong to any clubs o r organizations such as mormonism groups, unions, fraternal or athletic groups, or [...] Answer Date Recorded PHQ-2 Score 1 12/09/2023 [facility] - Occupational Stress [...] Sex Assigned at Female 02/03/2019 8:19 AM HEAD CUSTODIAN Gender Identity Female 02/03/2019 8:19 AM HEAD CUSTODIAN Sexual Orientation Straight 02/03/2019 8: 19 AM HEAD CUSTODIAN documented as of this encounter Plan of Treatment Upcoming Encounters Date Type Department Care Team (Late st Contact Info) Description 07/18/2024 3:00 PM CDT Appointment Department of Radiology in [place], [place] [address] [place] [phone] Ivan Echeverria P.A.-C. [address] [place] [phone] Discharge Disposition: Home or Self Care 07/20/2024 1:00 PM CDT Office Visit Department of Orthopedic Surgery in [place], [place] [address] [place] [phone] Gage Loya M.D. [address] [phone] Scheduled Referrals Name Type Priority Associated Diagnoses Order Schedule Orthopedic Surgery - Wrist / hand non surgical consult (clinic) Outpatient Referral Routine Carpal Tunnel Syndrome Left Expected: 03/01/2024 (Approximate), Expires: 05/31/2025 documented as of this encounter Visit Diagnoses Diagnosis Carpal Tunnel Syndrome Left- Primary documented in this encounter Additional Health Concerns Assessment Noted Time PHQ-9 Depression Total Score: 5 12/09/19 24 11:38 AM HEAD CUSTODIAN documented as of this encounter Care Teams Spray Machine Operator Relationship Specialty Start Date End Date Ivan Echeverria P.A.-C. PCP - General 05/14/17 documented as of this encounter
--- OUTSIDE RECORDS SUMMARY | 2024-07-08 22:05 | XMS_ITS | Encounter Summary ---
Author Organization [facility] Address [address] [place] [address] Care Team Providers Care Dealer Development Manager Name Role Phone Ivan Echeverria P.A.-C. Primary Care Provider Encounter Details Date Type Department Care Team (Late st Contact Info) Description 03/09/2024 Orders Only Department of Family Medicine, [facility], in [place], [place] [address] [place] [address] Ivan Echeverria P.A.-C. [address] [place] [phone] Flushing (Primary Dx) Social History Tobacco Use Types Packs/Day Years Used Date Smoking Tobacco: Every Day Cigarettes 0.3 16 Smokeless Tobacco: Never Comments:3-4 cigarettes per day Alcohol Use Standard Drinks/Week Comments Yes 1 (1 standard drink = 0.6 oz pur e alcohol) occas. [facility] Utilities Answer Date Recorded In the past 12 months has [facility] Maintenance Assistant, gas, oil, or water [email or web address] threatened to shut off services in your [...] often do you attend chur ch or amish services? 1 to 4 times per year 03/02/2023 Do you belong to any clubs o r organizations such as oriental orthodox groups, unions, fraternal or athletic groups, or [...] Answer Date Recorded PHQ-2 Score 1 12/09/2023 [facility] - Occupational Stress Questionnaire Answer [...] your living situation today? I have a [facility] place to live 03/10/2024 Education Answer Date Recorded What is the highest level of school you have completed or the highest degree you have received? Associate degree: occupational, technical, or vocational program 06/03/2021 Sex and Gender Information Value Date Recorded Sex Assigned at Female 02/03/2019 8:19 AM UNIT LEADER Gender Identity Female 02/03/2019 8:19 AM UNIT LEADER Sexual Orientation Straight 02/03/2019 8: 19 AM UNIT LEADER documented as of this encounter Plan of Treatment Upcoming Encounters Date Type Department Care Team (Late st Contact Info) Description 07/18/2024 3:00 PM CDT Appointment Department of Radiology in [place], [place] [address] [facility] [place] [phone] Ivan Echeverria P.A.-C. [address] [place] [phone] Discharge Disposition: Home or Self Care 07/20/2024 1:00 PM CDT Office Visit Department of Orthopedic Surgery in [place], [place] [address] [place] [phone] Gage Loya M.D. [address] [phone] documented as of this encounter Results * Metanephrines, Fractionated, 24 Hour, Urine (03/14/2024 9:13 AM CDT) Metanephrine, U 77 mcg/24 h 7:53 PM CDT [facility] Comment: ----REFERENCE VALUE---- 30-180 (Normotensive) <400 (Hypertensive) Normetanephrine, U 219 mcg/24 h 2023 7:53 PM CDT [facility] Comment: ----REFERENCE VALUE---- 119-451 (Normotensive) <900 (Hypertensive) Total Metanephrines, U 296 mcg/24 h 03/21/2024 7:53 PM CDT [facility] Comment: ----REFERENCE VALUE---- 156-561 (Normotensive) <1300 (Hypertensive) Collection Duration (h) 24 h 03/21/2024 7:53 PM CDT [facility] Volume (mL) 800 mL 03/21/2024 7:53 PM CDT [facility] Comment: ----ADDITIONAL INFORMATION---- This test was developed and its performance characteristics determined by [facility] in a manner consistent with CLIA requirements. This test has not been cleared or approved by the U.S. Food and Drug Administration. Urine (Urine, 24 Hours) 03/14/2024 9:13 AM CDT 03/15/2024 1:11 PM CDT Ivan Echeverria P.A.-C. LAB URINE MAIRA SQUIRES [facility] [place] [address] [place] [address] [facility] [address] [place] [address] [place] [address] * 5-Hydroxyindoleacetic Acid (5-HIAA), 24 hour, Urine (03/14/2024 9:13 AM CDT) Pathologist [facility] 5-Hydroxyindoleaceti c Acid, U 4.1 <=7.6 mg/24 h 03/15/2024 11:36 AM CDT DTL Collection Duration 24 h 03/15 11:36 AM CDT DTL Urine Volume 800 mL 03/15/2024 11:36 AM CDT DTL Comment: ----ADDITIONAL INFORMATION---- Liquid Chromatography-Tandem Mass Spectrometry (LC-MS/MS). Values obtained from different assay methods or kits may be different and cannot be used interchangeably. The results cannot be interpreted as absolute evidence for the presence or absence of malignant disease. This test was developed and its performance characteristics determined by [facility] in a manner consistent with CLIA requirements. This test has not been cleared or approved by the U.S. Food and Drug Administration. Urine (Urine, 24 Hours) 03/14/2024 9:13 AM CDT 03/15/2024 7:40 AM CDT Ivan Echeverria P.A.-C. LAB URINE MAIRA SQUIRES [facility] [address] [place] [address], [facility] [address] [place] [address] * Peripheral Morphology (03/09/2024 2:27 PM CDT) Pathologist [facility] 03/10/2024 12:46 PM CDT MKTO Report electronically signed by Maral Sterling MD 03/10/2024 12:46 PM CDT MKTO Specimen Received A. Peripheral blood smear 03/10/2024 12:46 PM CDT MKTO Gross Description Received is a peripheral blood smear for pathology review. Please refer to blood value results from 03/09/2024. 03/10/2024 12:46 PM CDT MKTO Microscopic Description Red cells are normochromic. ??Polychromasia is not increased. ??Rouleaux formation is not increased. Poikilocytosis is minimal. ??Nucleated red blood cells number 0 per 100 white cells. ??Platelet morphology is unremarkable. ??Neutrophils show appropriate segmentation and granulation. ??Lymphocytes consist of a heteromorphous population of mature cells. ??Blasts are not seen on scanning. 03/10/2024 12:46 PM CDT MKTO Interpretation FINAL DIAGNOSIS Peripheral blood smear: - Mild erythrocytosis. - Mild leukocytosis due to borderline absolute neutrophilia - Unremarkable platelets - See comment. COMMENT ?? Correlation with clinical findings for potential causes of secondary polycythemia including cigarette smoking and chronic hypoxia is recommended. 03/10/2024 12:46 PM CDT MKTO Blood (Blood, Venous) 03/09/2024 2:27 PM CDT 03/10/2024 7:43 AM CDT Ivan Echeverria P.A.-C. LAB BLOOD ADD- ON [facility] [place] [address], [place] MKTO [address] [place] [address] * (ABNORMAL) CBC with Differential, Blood (03/09/2024 2:27 PM CDT) Hemoglobin 15.6(H) 11.6 - 15.0 g/dL 03/09/2024 2:36 PM CDT FB60 Hematocrit 46.6(H) 35.5 - 44.9 % 03/09/2024 2:36 PM CDT FB60 Erythrocytes 5.18(H) 3.92 - 5.13 x10(12)/L 03/09/2024 2:36 PM CDT FB60 MCV 90.0 78.2 - 97.9 fL 03/09/2024 2:36 PM CDT FB60 RBC Distrib Width 11.7(L) 12.2 - 16.1 % 03/09/2024 2:36 PM CDT FB60 Platelet Count 277 157 - 371 x10(9)/L 03/09/2024 2:36 PM CDT FB60 Leukocytes 10.5(H) 3.4 - 9.6 x10(9)/L 03/09/2024 2:36 PM CDT FB60 Neutrophils 6.99(H) 1.56 - 6.45 x10(9)/L 03/09/2024 2:36 PM CDT FB60 Lymphocytes 2.38 0.95 - 3.07 x10(9)/L 03/09/2024 2:36 PM CDT FB60 Monocytes 0.71 0.26 - 0.81 x10(9)/L 03/09/2024 2:36 PM CDT FB60 Eosinophils 0.32 0.03 - 0.48 x10(9)/L 03/09/2024 2:36 PM CDT FB60 Basophils 0.06 0.01 - 0.08 x10(9)/L 03/09/2024 2:36 PM CDT FB60 Blood (Blood, Venous) 03/09/2024 2:27 PM CDT 03/09/2024 2:27 PM CDT Ivan Echeverria P.A.-C. LAB BLOOD ADD- ON Performing Organization Address City/[facility]/ZIP Co de Phone Number [facility] [address] [place] [address], [place] FB60 [facility] in [place] [address] [place] [address] * (ABNORMAL) Lipase (03/09/2024 2:26 PM CDT) Lipase, P 82(H) 13 - 60 U/L 03/09/2024 7: 32 PM CDT OWAT Blood (Blood, Venous) 03/09/2024 2:26 PM CDT 03/09/2024 6:03 PM CDT Ivan GagnonC. LAB BLOOD ADD- ON [facility] [address] [place] [address], [place] OWAT [facility] in [place] [address] [place] [address] * Estradiol - (for men, children, and post-menopausal women) (03/09/2024 2:26 PM CDT) Estradiol, Mass Spectrometry, S 258 pg/mL 03/14/2024 9:11 AM CDT [facility] Comment: ----REFERENCE VALUE---- Premenopausal: 15-350 (E2 levels vary widely through the menstrual cycle.) Postmenopausal: <10 ----ADDITIONAL INFORMATION---- This test was developed and its performance characteristics determined by [facility] in a manner consistent with CLIA requirements. This test has not been cleared or approved by the U.S. Food and Drug Administration. Blood (Blood, Venous) 03/09/2024 2:26 PM CDT 03/10/2024 7:46 AM CDT Ivan Echeverria P.A.-C. LAB BLOOD NON ADD-ON [facility] [address] [place] [address] [facility] [address] [place] [address] [place] [address] * CRP (C-Reactive Protein) (03/09/2024 2:26 PM CDT) Pathologist [facility] C-Reactive Protein (CRP), P <3.0 <5.0 mg/L 03/09/2024 7:[address] [facility] Blood (Blood, Venous) 03/09/2024 2:26 PM CDT 03/09/2024 6:03 PM CDT Ivan Echeverria P.A.-C. LAB BLOOD ADD- ON [facility] [address] [place] [address], [place] OW[place] [facility] in [place] [address] [place] [address] * Thyroid Function [place] (03/09/2024 2:26 PM CDT) TSH, Sensitive 1.5 0.3 - 4.2 mIU/L 03/09/2024 6:40 PM CDT OWAT Blood (Blood, Venous) 03/09/2024 2:26 PM CDT 03/09/2024 6:03 PM CDT Ivan Echeverria P.A.-C. LAB BLOOD ADD- ON [facility] [address] [place] [address], [place] OWAT [facility] in [place] [address] [place] [address] * 5-Hydroxyindoleacetic Acid (03/09/2024 2:26 PM CDT) 5-Hydroxyindoleaceti c Acid, P 12 <=30 ng/mL 03/12/2024 11:06 AM CDT DTL Comment: In this sample, the concentration of 5HIAA was within normal limits. ----ADDITIONAL INFORMATION---- Liquid Chromatography-Tandem Mass Spectrometry (LC-MS/MS). Values obtained from different assay methods or kits may be different and cannot be used interchangeably. The results cannot be interpreted as absolute evidence for the presence or absence of malignant disease. This test was developed and its performance characteristics determined by [facility] in a manner consistent with CLIA requirements. This test has not been cleared or approved by the U.S. Food and Drug Administration. Blood (Blood, Venous) 03/09/2024 2:26 PM CDT 03/10/2024 7:49 AM CDT Ivan Echeverria P.A.-C. LAB BLOOD ADD- ON [facility] [address] [place] [address], [place] DTL [address] [place] [address] documented in this encounter Visit Diagnoses Diagnosis Flushing- Primary documented in this encounter Additional Health Concerns Assessment Noted Time PHQ-9 Depression Total Score: 5 12/09/19 24 11:38 AM UNIT LEADER documented as of this encounter Care Teams Dealer Development Manager Relationship Specialty Start Date End Date Ivan Echeverria P.A.-C. PCP - General 05/14/17 documented as of this encounter
--- OUTSIDE RECORDS SUMMARY | 2024-07-08 22:05 | XMS_ITS | Clinical Summary ---
Author Organization [employer] [facility] [employer] Address [place], [place] [address] Care Team Providers Care Creative Perfumer Name Role Phone Ivan Echeverria Primary Care Provider [phone] Allergies Active Allergy Reactions Criticality Noted Date Comments Covid-19 Vaccine, Mrna, [id number], Lnp-S (Moderna) Shortness Of Breath,Rash,Dyspnea 04/19/2021 Metoclopramide Hcl Other - Describe In Comment Field,Dizziness Low 07/26/2019 Worsening of restless leg syndrome (see 07/26/19 ED visit notes). Worsening of restless leg syndrome (see 07/26/19 ED visit notes). Penicillins Rash 01/08/2007 Prochlorperazine Anxiety 12/17/2022 increase anxiety Medications Medication Sig Dispensed Refills Start Date End Date Status pramipexole (MIRAPEX) 0.125 mg tablet Take 0.375 mg by mouth once daily in the evening. Active ibuprofen (ADVIL; MOTRIN) 200 mg tablet Take 600 mg by mouth every 6 hours if needed for Pain or Temp > (Specify). Active acetaminophen (TYLENOL EXTRA STRGTH) 500 mg tablet Take 1,000 mg by mouth every 6 hours if needed. Active EPINEPHrine (EPIPEN) 0.3 mg/0.3 mL injectionIndications :Anaphylaxis, initial encounter Inject 0.3 mg intramuscular one time if needed for Allergic Reaction for up to 1 dose. 2 Each 04/19/2021 Active atorvastatin (LIPITOR) 20 mg tablet Take 20 mg by mouth at bedtime. Active cyclobenzaprine (FLEXERIL) 10 mg tablet Take 10 mg by mouth once daily if needed. 01/14/2023 Active levonorgestrel (MIRENA) 20 mcg/24 hours (8 yrs) 52 mg intrauterine device (IUD) Inject 1 Each intrauterine. 03/13/2022 Active hydrOXYzine HCL (ATARAX) 10 mg tablet Take 10 mg by mouth 4 times daily if needed. 10/06/2023 Active propranolol ER (INDERAL LA) 120 mg Cs24 Sustained-Release capsule Take 120 mg by mouth once daily. 12/09/2023 5 Active ondansetron (ZOFRAN ODT) 4 mg disintegrating tabletIndications:Ab dominal pain, unspecified abdominal location,Nausea Place 1 Tablet (4 mg) on the tongue every 8 hours if needed for Nausea/Vomiting. 10 Tablet 01/13/2024 Active ALPRAZolam (XANAX) 0.25 mg tablet Take 0.25 mg by mouth one time if needed. 02/02/2024 Active busPIRone (BUSPAR) 10 mg tablet Take 10 mg by mouth two times daily. 03/11/2024 5 Active DULoxetine (CYMBALTA) 60 mg Delayed-release capsule Take 60 mg by mouth once daily. 01/22/2024 Active lisinopriL (PRINIVIL; ZESTRIL) 10 mg tablet Take 10 mg by mouth once daily. 01/22/2024 Active ibuprofen (ADVIL; MOTRIN) 600 mg tabletIndications:Ca rpal tunnel syndrome of left wrist Take 1 Tablet (600 mg) by mouth every 6 hours if needed for Pain. Maximum of 3200 mg in 24 hours. 30 Tablet 06/07/2024 Active predniSONE (DELTASONE) 20 mg tabletIndications:Dy spnea, unspecified type Take 2 Tablets (40 mg) by mouth once daily for 4 days. 8 Tablet 07/05/2024 4 Active albuterol HFA (PRO-AIR; VENTOLIN; PROVENTIL) 90 mcg/actuation inhalerIndications:D yspnea, unspecified type Inhale 2 Puffs by mouth every 4 hours if needed for Shortness Of Breath. 18 g 07/05/2024 Active traMADoL (Ultram) 50 mg tabletIndications:Ca rpal tunnel syndrome of left wrist Take 1 Tablet (50 mg) by mouth every 6 hours if needed for Pain. 10 Tablet 06/07/2024 Active Problems Problem Noted Date Diagnosed Date Carpal tunnel syndrome of left wrist 06/06/2024 Carpal tunnel syndrome on right 05/27/2023 Community acquired pneumonia of right upper lobe of lung 07/27/2019 Sinus tachycardia 07/27/2019 Hypertension 01/19/2010 Major depressive disorder, recurrent episode, mo derate 10/25/2007 Unspecified asthma(493.90) 01/07/2007 ALLERGIC RHINITIS 01/07/2007 Resolved Problems Problem Noted Date Diagnosed Date Resolved Date Supervision of other normal 03/22/2012 09/28/2012 VERONICA CARE CONTRACT 12/10/2010 012 Overview: This patient, PCP and Care Guide have signed a letter agreeing on a set of goals for diabetes, hypertension and/or CHF. Please look for Veronica Care Goal Contract in Chart Review/ Letters and support this effort. Please direct questions to Care Guide Marlen Zuniga Phone number [phone] Unspecified essential hypertension 11/23/2008 01/19/2010 Encounters Date Type Department Care Team Description 07/05/2024 3:47 AM CDT - 07/05/2024 5:53 AM CDT Emergency [address] [address] Arash Oneil MD Dyspnea, unspecified type (Primary Dx) Discharge Disposition: Home Self Care 07/05/2024 Travel 06/23/2024 11:01 PM CDT - 06/24/2024 2:58 AM CDT Emergency [facility] [address] [place] [address] Jennifer Stewart MD COVID-19 (Primary Dx) Discharge Disposition: Home Self Care 06/23/2024 Travel 06/07/2024 11:52 PM CDT - 06/08/2024 12:43 AM CDT Emergency [facility] [address] [place] [address] Johnathan Tucker MD Injury of left wrist, initial encounter (Primary Dx); Postoperative pain Discharge Disposition: Home Self Care 06/07/2024 10:42 AM CDT Anesthesia Event [facility] [address] [place] [address] Ruy Garcia III, MD 06/07/2024 10:26 AM CDT - 06/07/2024 10:52 AM CDT Surgery [facility] [address], [place] [address] Gage Loya MD RELEASE CARPAL TUNNEL-LEFT 06/07/2024 8:36 AM CDT - 06/07/2024 11:40 AM CDT Hospital Encounter [facility] [address] [place] [address] Gage Loya MD Carpal tunnel syndrome of left wrist (Primary Dx) Discharge Disposition: Home Self Care 06/07/2024 Travel 06/01/2024 Travel from Last 3 Months Immunizations Name Administration Dates Next Due Influenza, IIV3 (Age >=3 years) 09/28/2012,10/18,10/30/2003 Td (Age >=7 Years) 11/30/2003 Tuberculin (PPD) 08/30/2005 Family History Medical History Relation Name Comments Diabetes Maternal Grandfather Hypertension Maternal Grandfather Diabetes Maternal Uncle Hypertension Mother Other Mother endometriosis, hyst Relation Name Status Comments Brother Alive X2 Daughter Alive Father Alive Maternal Grandfather Maternal Grandmother Alive Maternal Uncle Mother Alive Paternal Grandfather Alive Paternal Grandmother Alive Sister Alive Son Alive Social History Tobacco Use Types Packs/Day Years Used Date Smoking Tobacco: Former Cigarettes 0.3 5 0 07/24/2014 - 07/24/2019 Passive Smoke Exposure: Past Smokeless Tobacco: Never Tobacco Cessation:Counseling Given: No Comments:quit 07/24/19 Alcohol Use Standard Drinks/Week Comments Yes 0 (1 standard drink = 0.6 oz pur e alcohol) socially, very rarely Sex and Gender Information Value Date Recorded Sex Assigned at Not on file Gender Identity Not on file Sexual Orientation Not on file Travel History Travel Start Travel End [place] 06/14/2024 06/20/2024 Obstetrics History Para Term AB IAB SAB Ectopic Multiple Livin g Live Births 4 2 2 0 1 0 0 0 0 2 2 Date Outcome GA Total Labor Labor/2nd/3rd Weight Sex Type Anes PTL Katya A1 A5 Name Clin 1996 Term 40w 0d 3.86 kg (8 lb 8 oz) F VAGINA L VACU Livin g Ruslan Delivery Location:[place] 1999 Term 40w 0d 4.42 kg (9 lb 12 oz) M VAGINA L VACU Livin g Yinka Cazares/ Juliael l Delivery Location:[facility] 2 AB 6w0 d Last Filed Vital Signs Vital Sign Reading Time Taken Comments Blood Pressure 162/115 07/05/2024 4:30 AM CDT Pulse 68 07/05/2024 5:15 AM CDT Temperature 37.1 ??C (98.7 ??F) 07/05/2024 3:52 AM CD T Respiratory Rate 16 07/05/2024 4:22 AM CDT Oxygen Saturation 96% 07/05/2024 5:15 AM CDT Inhaled Oxygen Concentration - - Weight 77.9 kg (171 lb 11.8 oz) 07/05/2024 3:52 AM CDT Height 170.2 cm (5' 7) 07/05/2024 3:52 AM CDT Body Mass Index 26.9 07/05/2024 3:52 AM CDT Plan of Treatment Health Maintenance Due Date Last Done Comments Tdap 01/27/1987 Depression screening for age 12+ 1988 HIV for age 15-65 01/27/1991 BMI (ht and wt on same day) for age 18+ 01/27/1994 Hepatitis C screening for ag e 18-79 01/27/1994 Pap test for age 21-65 10/18/2010 7, 03/13/2005 Tetanus booster 11/30/2013 11/30/2003 Colonoscopy through age 75 01/27/2021 Lipids for age 45-75 01/27/2021 Mammogram for age 45-75 01/27/2021 COVID-19 vaccine series (2022- season) 2023 04/19/2021, 03/22/2021 Influenza for age 9-49 07/31/2024 2, 10/18/2007, 10/30/2003 Pneumococcal series for age 6-64 Aged Out No longer eligible b ased on patient's age to complete this topic Medical Devices Implanted Type Area Rum Processing Operator Device Identifier Shelf Expiration Date Model / Serial / Lot Sys Intrauterine Mirena - [id number] Implanted:Qty: 1 on 03/13/2022 by Matthew Mckinney MD at [facility] N/A: Vagina [employer] 03/29/2024 [id number] / / [id number] Procedures Procedure Name Priority Date/Time Associated Diagnosis Comments XR CHEST 2 VIEWS PA AND LATERAL STAT 07/05/2024 4:38 AM CDT XR CHEST 2 VIEWS PA AND LATERAL STAT 06/24/2024 1:51 AM CDT CBC WITH AUTO DIFFERENTIAL STAT 06/23/2024 11:47 PM CDT BASIC METABOLIC PANEL STAT 06/23/2024 11:47 PM CDT CBC WITH AUTO DIFFERENTIAL STAT 06/23/2024 11:47 PM CDT COVID/FLU/RSV PANEL Today 06/23/2024 1 1:40 PM CDT XR WRIST 3 VIEWS LEFT STAT 06/08/2024 12:25 AM CDT RELEASE CARPAL TUNNEL 06/07/2024 10:42 AM CDT SAME Special Needs [id number] AIRCRAFT LAUNCH AND RECOVERY TECHNICIAN THIN PREP PAP SCREEN IMAGED Routine 10/18/2007 11:01 AM GREEN MATERIAL VALUE ADDED ASSESSOR Screening Malignant Neoplasms Cervix from Last 3 Months or Most Recently Relevant to Health Maintenance Results * XR CHEST 2 VIEWS PA AND LATERAL (07/05/2024 4:38 AM CDT) Only the most recent of2 resultswithin the time period is included. Anatomical Region Laterality Modality CHEST, THORAX, Lung, HEART Digit al Radiography 07/05/2024 5:13 AM CDT Impressions 07/05/2024 5:13 AM CDT Normal chest radiographs. Dictated by Dianne Mak MD @ 07/05/2024 5:13:37 AM (Electronically Signed) Narrative 07/05/2024 5:13 AM CDT For Patients: ??As a result of the Cures Act, medical imaging exams and procedure reports are released immediately into your electronic medical record. ??You may view this report before your referring provider. ??If you have questions, please contact your health care provider. INDICATION: Chest pain COMPARISON: 06/24/2024, 2023 TECHNIQUE: PA and lateral 2 view chest. FINDINGS: Lung volumes are good. No focal or diffuse opacities. No pulmonary edema. No pleural effusion. No pneumothorax. No pneumomediastinum. Normal cardiomediastinal silhouette. Bones: Normal for age. Procedure Note Dianne Mak MD - 07/05/2024 For Patients: As a result of the Cures Act, medical imagingexams and procedure reports are released immediately into your electronicmedical record. You may view this report before your referring provider.If you have questions, please contact your health care provider. INDICATION: Chest pain COMPARISON: 06/24/2024, 2023 TECHNIQUE: PA and lateral 2 view chest. FINDINGS: Lung volumes are good. No focal or diffuse opacities. No pulmonary edema.No pleural effusion. No pneumothorax. No pneumomediastinum. Normal cardiomediastinal silhouette. Bones: Normal for age. IMPRESSION: Normal chest radiographs. Dictated by Dianne Mak MD @ 07/05/2024 5:13:37 AM (Electronically Signed) Arash Oneil MD GENERAL IMAGI NG * CBC WITH AUTO DIFFERENTIAL (06/23/2024 11:47 PM CDT) WHITE BLOOD COUNT 6.4 4.5 - 11.0 thou/cu mm 06/24/2024 12:19 AM CDT [facility] RED BLOOD COUNT 4.84 4.00 - 5.20 mil/cu mm 06/24/2024 12:19 AM CDT [facility] HEMOGLOBIN 15.0 12.0 - 16.0 g/dL 06/24/2024 12:19 AM [facility] HEMATOCRIT 44.0 33.0 - 51.0 % 06/24/2024 12:19 AM [facility] MCV 91 80 - 100 fL 06/24/2024 12:19 AM [facility] MCH 31.0 26.0 - 34.0 pg 06/24/2024 12:19 AM [facility] MCHC 34.1 32.0 - 36.0 g/dL 06/24/2024 12:19 AM [facility] RDW 12.9 11.5 - 15.5 % 06/24/2024 12:19 AM [facility] PLATELET COUNT 207 140 - 440 thou/cu mm 06/24/2024 12:19 AM [facility] MPV 10.1 6.5 - 11.0 fL 06/24/2024 12:19 AM [facility] % NEUT 49.2 % 06/24/2024 12:19 AM [facility] % LYMPH 33.5 % 06/24/2024 12:19 AM [facility] % MONO 11.2 % 06/24/2024 12:19 AM [facility] % EOS 5.5 % 06/24/2024 12:19 AM [facility] % BASO 0.6 % 06/24/2024 12:19 AM [facility] ABSOLUTE NEUTROPHILS 3.1 1.7 - 7.0 thou/cu mm 06/24/2024 12:19 AM [facility] ABSOLUTE LYMPHOCYTES 2.1 0.9 - 2.9 thou/cu mm 06/24/2024 12:19 AM [facility] ABSOLUTE MONOCYTES 0.7 <0.9 thou/cu mm 06/24/2024 12:19 AM [facility] ABSOLUTE EOSINOPHILS 0.4 <0.5 thou/cu mm 06/24/2024 12:19 AM [facility] ABSOLUTE BASOPHILS 0.0 <0.3 thou/cu mm 06/24/2024 12:19 AM [facility] Blood BLOOD SPECIMEN / Unknown Venipuncture / Unknown 06/23/2024 11:47 PM CDT 06/24/2024 12:15 AM CDT Jennifer Stewart MD HEMAT OLOGY [facility] [address] [place] [address] * (ABNORMAL) BASIC METABOLIC PANEL (06/23/2024 11:47 PM CDT) SODIUM 138 136 - 145 mmol/L 06/24/2024 12:35 AM [facility] POTASSIUM 3.9 3.5 - 5.1 mmol/L 06/24/2024 12:35 AM [facility] CHLORIDE 104 98 - 107 mmol/L 06/24/2024 12:35 AM [facility] CO2,TOTAL 25 22 - 29 mmol/L 06/24/2024 12:35 AM [facility] ANION GAP 9 5 - 18 06/24/2024 12:35 AM [facility] GLUCOSE 110(H) 70 - 99 mg/dL 06/24/2024 12:35 AM [facility] CALCIUM 9.0 8.6 - 10.0 mg/dL 06/24/2024 12:35 AM [facility] BUN 13 6 - 20 mg/dL 06/24/2024 12:35 AM [facility] CREATININE 0.83 0.50 - 0.90 mg/dL 06/24/2024 12:35 AM [facility] BUN/CREAT RATIO 16 10 - 20 12:35 AM [facility] eGFR 87(L) >90 mL/min/1.7 3m2 06/24/2024 12:35 AM [facility] Comment:As of 2022, eG FR is calculated by the CKD-EPI creatinine equation without race adjustment. ??eGFR can be influenced by muscle mass, exercise, and diet. ??The reported eGFR is an estimation only and is only applicable if the renal function is stable. Blood BLOOD SPECIMEN / Unknown Venipuncture / Unknown 06/23/2024 11:47 PM CDT 06/24/2024 12:15 AM CDT Jennifer Stewrat MD CHEMI STRY Performing Organization Address [facility] Co de Phone Number [facility] [address] [place] [address] * (ABNORMAL) COVID/FLU/RSV PANEL (06/23/2024 11:40 PM CDT) COVID 19 [facility]LE[facility] Positive(A) Negative 06/24/2024 2:37 PM CDT [facility] INFLUENZA A PCR Negative 2:37 PM CDT [facility] INFLUENZA B PCR Negative 4 2:37 PM CDT [facility] Respiratory Syncytial Virus Negative 06/24/2024 2:37 PM CDT [facility] Swab SPECIMEN FROM NASOPHARYNGEAL STRUCTURE / Unknown Non-Blood / Unknown 06/23/2024 11:40 PM CDT 06/24/2024 12:16 AM CDT Jennifer Stewart MD MICRO BIOLOGY Performing Organization Address [facility] Co de Phone Number [facility] [address] [place] [address], [place] * XR WRIST 3 VIEWS LEFT (06/08/2024 12:25 AM CDT) Anatomical Region Laterality Modality WRISTS, WRIST L Digital Radiogra phy 06/08/2024 12:3 4 AM CDT Impressions 06/08/2024 12:34 AM CDT No acute osseous abnormality. Dictated by Jerry Evans MD @ 06/08/2024 12:34:54 AM (Electronically Signed) Narrative 06/08/2024 12:34 AM CDT For Patients: ??As a result of the Cures Act, medical imaging exams and procedure reports are released immediately into your electronic medical record. ??You may view this report before your referring provider. ??If you have questions, please contact your health care provider. INDICATION: Trauma and pain. TECHNIQUE: Left wrist 3 views. COMPARISON: None. FINDINGS: Overlying cast/splint material obscures fine osseous details. No acute fractures or malalignment. Joint spaces are maintained. Mild soft tissue swelling. Procedure Note Jerry Evans MD - 06/08/2024 For Patients: As a result of the Cures Act, medical imagingexams and procedure reports are released immediately into your electronicmedical record. You may view this report before your referring provider.If you have questions, please contact your health care provider. INDICATION: Trauma and pain. TECHNIQUE: Left wrist 3 views. COMPARISON: None. FINDINGS: Overlying cast/splint material obscures fine osseous details. No acutefractures or malalignment. Joint spaces are maintained. Mild soft tissueswelling. IMPRESSION: No acute osseous abnormality. Dictated by Jerry Evans MD @ 06/08/2024 12:34:54 AM (Electronically Signed) Johnathan Tucker MD GENERAL IMAGIN G * AIRCRAFT LAUNCH AND RECOVERY TECHNICIAN THIN PREP PAP SCREEN IMAGED (10/18/2007 11:01 AM GREEN MATERIAL VALUE ADDED ASSESSOR) CYTOLOGY ??CYTOPATHOLOGY REPORT ??[facility] ?? Status: Final Report ? [id number] ?? CLINICAL INFORMATION ?LMP ? : 10/09/07 ?Previous Pap Date ? : 03/13/05 ?Previous PAP Dx ? : Negative for intraepithelial lesion or ?malignancy. ?Previous Whitharral/bx date : None ?Previous Colposcopy/Bx: None ?Hormone Usage ? : BCP/OCP/Patch/Ring ?Menstrual Status ?: Regular Periods ?Appearance of Cervix ??: NORMAL ?Whitharral/Bx done today ?: No ?HPV Request ? : Reflex HPV test if PAP Dx ASCUS ?? SPECIMEN SOURCE ?: Cervical/vaginal ThinPrep Vial, screening ?? SPECIMEN ADEQUACY ?: Satisfactory for evaluation Endocervical ?component present. ? INTERPRETATION/RES ULT: ?Negative for intraepithelial lesion or malignancy. ? Cytology 1st Screener : ??cmm ?? Signed by: ? cmm ?? This specimen was screened by the FDA approved ThinPrep Imaging ?? System and manually reviewed. ?? NOTE: The Pap test is a screening technique, not a diagnostic ?? procedure. It is used primarily to screen for squamous cancers and ?? precursor lesions. Published studies have shown that it is subject to ?? both false negative and false positive results. The pap test should ?? not be used as the sole means to diagnose or exclude pre-malignant and ?? malignant lesions. ?? COLLECTED: 10/18/07 ?? ACCESSIONED: 10/18/07 ?? SIGNED: 10/27/07 [facility] Cervical (Cervical) 10/18/2007 11:01 AM GREEN MATERIAL VALUE ADDED ASSESSOR 10/18/2007 10:55 AM GREEN MATERIAL VALUE ADDED ASSESSOR Jorge Mercado MD PATHOLOGY/CYTOLO GY [facility] INTERNAL ZIP [id number] [address] from Last 3 Months or Most Recently Relevant to Health Maintenance Additional Health Concerns Infection Onset Date Last Indicated COVID-19 06/23/2024 06/23/2024 Advance Directives * Full Code (Latest Code Status on File) Date Activated Date Inactivated Comments 06/07/2024 7:04 AM 06/07/2024 1:53 PM Question Answer Comments Code Status Discussion: Not Discussed * Full Code Date Activated Date Inactivated Comments 05/28/2023 11:02 AM 05/29/2023 2:33 AM Question Answer Comments Code Status Discussion: Not Discussed * Full Code Date Activated Date Inactivated Comments 03/13/2022 6:25 AM 03/13/2022 11:52 AM Question Answer Comments Code Status Discussion: Reviewed Preferences * Full Code Date Activated Date Inactivated Comments 07/27/2019 8:05 PM 07/28/2019 4:52 PM Care Teams Creative Perfumer Relationship Specialty Start Date End Date Ivan Echeverria PA [address] [place] [address] [facility] [place] [id number] PCP - General 07/04/14
--- OUTSIDE RECORDS SUMMARY | 2024-07-08 22:05 | XMS_ITS | Encounter Summary ---
Author Organization [facility] Address [address] [place] [address] Care Team Providers Care Assistant Superintendent For Curriculum Name Role Phone Ivan Echeverria P.A.-C. Primary Care Provider Reason for Visit * Reason Comments Med Refill Encounter Details Date Type Department Care Team (Late st Contact Info) Description 04/19/2024 Refill Department of Family Medicine, [facility], in [place], [place] [address] [place] [address] Ivan Echeverria P.A.-C. [address] [place] [address] Med Refill Social History Tobacco Use Types Packs/Day Years Used Date Smoking Tobacco: Every Day Cigarettes 0.3 16 Smokeless Tobacco: Never Comments:3-4 cigarettes per day Alcohol Use Standard Drinks/Week Comments Yes 1 (1 standard drink = 0.6 oz pur e alcohol) occas. [facility] Utilities Answer Date Recorded In the past 12 months has e [employer], gas, oil, or water [employer] threatened to shut off services in your [...] How often do you attend chur or mandaeism services? 1 to 4 times per year 03/02/2023 Do you belong to any clubs o r organizations such as orthodoxy groups, unions, fraternal or athletic groups, or [...] Answer Date Recorded PHQ-2 Score 1 12/09/2023 [facility] - Occupational Stress [...] your living situation today? I have a [facility] place to live 03/10/2024 Education Answer Date Recorded What is the highest level of school you have completed or the highest degree you have received? Associate degree: occupational, technical, or vocational program 06/03/2021 Sex and Gender Information Value Date Recorded Sex Assigned at Female 02/03/2019 8:19 AM SALES DEVELOPMENT ASSOCIATE Gender Identity Female 02/03/2019 8:19 AM SALES DEVELOPMENT ASSOCIATE Sexual Orientation Straight 02/03/2019 8: 19 AM SALES DEVELOPMENT ASSOCIATE documented as of this encounter Miscellaneous Notes * Telephone Encounter - Ana Lobohermann Florez - 04/19/2024 4:19 PM CDT Cyclobenzaprine 10 mg tablet is pended. Historical med list shows the prescription has . Please renew or reject as appropriate. Thank you. Nurse review: Med Refill Team is unable to forward request to provider. Discrepancy: Verification Required. Medication Discontinued. Primary Provider: Ivan Echeverria P.A.-C., P.AReema Requested Prescriptions Pending Prescriptions Disp Refills cyclobenzaprine (FLEXERIL) 10 mg tablet [Pharmacy Med Name: CYCLOBENZAPRINE 10MG TABLETS] 30 tablet0 Sig: TAKE 1 TABLET(10 MG) BY MOUTH AT BEDTIME NEEDED FOR MUSCLE SPASMS documented in this encounter Plan of Treatment Upcoming Encounters Date Type Department Care Team (Late st Contact Info) Description 07/18/2024 3:00 PM CDT Appointment Department of Radiology in [address] [address] Ivan Echeverria P.A.-C. [address] [place] [phone] Discharge Disposition: Home or Self Care 07/20/2024 1:00 PM CDT Office Visit Department of Orthopedic Surgery in [address] [address] Gage Loya M.D. [address] [address] documented as of this encounter Visit Diagnoses Not on filedocumented in this encounter Additional Health Concerns Assessment Noted Time PHQ-9 Depression Total Score: 5 12/09/19 24 11:38 AM SALES DEVELOPMENT ASSOCIATE documented as of this encounter Care Teams Assistant Superintendent For Curriculum Relationship Specialty Start Date End Date Ivan Echeverria P.A.-C. PCP - General 05/14/17 documented as of this encounter
--- OUTSIDE RECORDS SUMMARY | 2024-07-08 22:05 | XMS_ITS | Continuity of Care Document ---
Author Name [facility] Organization [facility] Care Team Providers Care Examination Scorer Name Role Phone [facility] Unavailable Unavailable Allergies, Adverse Reactions, Alerts Combined list of allergies from Department of Defense and Veterans Affairs facilities. It does not include entries that were removed or entered in error. Substance Category Reaction Severity Reaction type Status Date Reported Comments Source No Known Allergies Drug allergy (disorder) active 09/27/2020 [place], [place] Social History Combined list of available smoking, tobacco, and other social history from Department of Defense and Veterans Affairs facilities. Social History Type Response Date Comment Sourc e This section is an empty social history section. [facility]
--- OUTSIDE RECORDS SUMMARY | 2024-07-08 22:05 | XMS_ITS | Encounter Summary ---
Author Organization [facility] Address [address] [place] [address] Care Team Providers Care Principal Web Developer Name Role Phone Ivan Echeverria P.A.-C. Primary Care Provider Reason for Visit * Reason Comments carple tunnel Left hand * Outpatient (Routine) - Closed Specialty Diagnoses / Procedures Referred By Alina flaherty Referred To Contact Family Medicine Diagnoses Carpal Tunnel Syndrome Left Gage Loya M.D. [address] [place] [address] [facility] Region Referral ID Status Reason Start Date Expiration Date Visits Re quested Visits Authorized [id number] Closed 03/16/2024 09/15/2025 1 1 Encounter Details Date Type Department Care Team (Late st Contact Info) Description 05/13/2024 11:00 AM CDT Office Visit Department of Family Medicine, [facility], in [place], [place] [address] [place] [address] Ivan Echeverria P.A.-C. [address] [place] [address] Preoperative Exam (Primary Dx); Carpal Tunnel Syndrome Left; Bruxism (Sleep Related); Depression Major Recurrent Moderate (HCC); Hyperlipidemia; Hypertension Essential Primary; Sleep Apnea; Restless Leg Syndrome; Pancreatitis Chronic (HCC); Tobacco Use; Anxiety Social History Tobacco Use Types Packs/Day Years Used Date Smoking Tobacco: Every Day Cigarettes 0.3 16 Smokeless Tobacco: Never Comments:3-4 cigarettes per day Alcohol Use Standard Drinks/Week Comments Yes 1 (1 standard drink = 0.6 oz pur e alcohol) occas. [facility] Utilities Answer Date Recorded In the past [...] often do you attend chur ch or temple services? 1 to 4 times per year 03/02/2023 Do you belong to any clubs o r organizations such as anabaptist groups, unions, fraternal or athletic groups, or [...] 06/03/2023 PHQ-2 Answer Date Recorded PHQ-2 Score 2 05/13/2024 [facility] Occupat ional [facility] - Occupational Stress Questionnaire Answer Date Recorded [...] Recor ded PHQ-9 Total Score (max 27) 4 05/13 Nutrition Answer Date Recorded On average, how [...] Sex Assigned at Female 02/03/2019 8:19 AM AUTOMATIC PUNCH PRESS OPERATOR Gender Identity Female 02/03/2019 8:19 AM AUTOMATIC PUNCH PRESS OPERATOR Sexual Orientation Straight 02/03/2019 8: 19 AM AUTOMATIC PUNCH PRESS OPERATOR documented as of this encounter Last Filed Vital Signs Vital Sign Reading Time Taken Comments Blood Pressure 135/89 05/13/2024 11:20 AM CDT Pulse 73 05/13/2024 8:29 AM CDT Temperature - - Respiratory Rate - - Oxygen Saturation - - Inhaled Oxygen Concentration - - Weight - - Height - - Body Mass Index - - documented in this encounter H&P Notes * Ivan Echeverria P.A.-Julia., P.A. - 05/13/2024 11:00 AM CDT SUBJECTIVE PREOPERATIVE HISTORY AND PHYSICAL CHIEF COMPLAINT / REASON FOR VISIT Cammie Figueroa is a 49 y.o. female who presents for evaluation of carple tunnel (Left hand). HISTORY OF PRESENT ILLNESS Cammie presents today for preop history and physical prior to her upcoming carpal tunnel surgery. She has anxiety but overall this has been doing pretty well. She has been struggling with her mother'sillness recently. She feels well she is active she is able to walk two blocks without having chest pain or shortness of breath. Recently she did have a history of an elevation of her lipase. This is likely secondary to her Wegovy use. We had her cut back on the Wegovy in or rechecking a lipase in the near future. She feels well. And otherwise has no new concerns. Current Outpatient Medications Medication Sig Dispense Refill ALPRAZolam (XANAX) 0.25 mg tablet Take 1 tablet (0.25 mg total) by mouth as needed for anxiety. 4 tablet 0 atorvastatin (LIPITOR) 20 mg tablet Take 1 tablet (20 mg total) by mouth daily. 90 tablet 3 busPIRone (BUSPAR) 10 mg tablet Take 1 tablet (10 mg total) by mouth 2 (two) times a day. 60 cyclobenzaprine (FLEXERIL) 10 mg tablet TAKE 1 TABLET(10 MG) BY MOUTH AT BEDTIME NEEDED FOR MUSCLE SPASMS 30 tablet 0 DULoxetine (CYMBALTA) [address] capsule Take 1 capsule (60 mg total) by mouth daily. 90 capsule 3 hydrOXYzine (ATARAX) 10 mg tablet Take 1 tablet (10 mg total) by mouth 4 (four) times a day as needed for anxiety. 30 tablet 0 levonorgestreL (MIRENA) 20 mcg/24 hours (7 yrs) 52 mg IUD 1 each by intrauterine route continuously. lisinopriL (PRINIVIL,ZESTRIL) 10 mg tablet Take 1 tablet (10 mg total) by mouth daily. 90 tablet 3 ondansetron ODT (ZOFRAN-ODT) 4 mg disintegrating tablet DISSOLVE 1 TABLET IN THE MOUTH EVERY 8 HOURS NEEDED FOR NAUSEA OR VOMITING 20 tablet 0 pramipexole (MIRAPEX) 0.125 mg tablet TAKE 4 TABLETS BY MOUTH EVERY NIGHT AT BEDTIME 360 tablet 3 propranoloL (INDERAL LA) 120 mg 24 hr capsule Take 1 capsule (120 mg total) by mouth daily. 90 capsule 3 semaglutide (Wegovy) 1 mg/0.5 mL pen injector injection Inject 1 mg under the skin every 7 (seven) days. 6 mL 3 No current facility-administered medications for this visit. Allergies Allergen Reactions Compazine [Prochlorperazine] Anxiety increase anxiety Penicillins Other (see comments) Sars-Cov-2 (Covid-19) - Moderna Rash and Shortness of breath (Reselect Reaction) Metoclopramide Hcl Other (see comments) Worsening of restless leg syndrome (see 07/26/19 ED visit notes). MEDICAL HISTORY Patient Active Problem List Diagnosis Anxiety Depression Major Recurrent Moderate (HCC) Restless Leg Syndrome Hyperlipidemia Sleep Apnea Bruxism (Sleep Related) Hypertension Essential Primary Tobacco Use Past Surgical History: Procedure Laterality Date HYSTEROSCOPY W/ ENDOMETRIAL ABLATION N/A 03/13/2022 Removal flat polyp and replaced IUD RESECTION OF POLYP N/A Polypectomy, nasal Social History Tobacco Use Smoking status: Every [...] per week Comment: occas. Drug use: No Family History Problem Relation Name Age of Onset Emphysema Father Alcohol abuse Father Hypertension Mother No Known Problems Son Anxiety depression Daughter OBJECTIVE Vitals: 05/13/24 0828 05/13/24 0829 05/13/24 1120 BP: (!) 137/92 (!) 134/91 135/89 BP Location: Left arm Left arm Patient Position: Sitting Sitting Cuff Size: Regular Regular Pulse: 73 73 There is no height or weight on file to calculate BMI. PHYSICAL EXAMINATION General: Patient appears in no acute distress. ENT: TMs no erythema. Throat no erythema. Neck: No lymphadenopathy. No thyroid masses. Heart: Regular rate and rhythm. No murmurs. Lungs: Clear to auscultation. Abdomen: Soft and nontender to palpation. ASSESSMENT / PLAN #1 Carpal Tunnel Syndrome Left She will follow up for surgery as scheduled #2 Preoperative Exam ASA class two for surgery. Follow-up as scheduled #3 Bruxism (Sleep Related) She has getting a new mouth guard for this #4 Depression Major Recurrent Moderate (HCC) Continue with her current medications #5 Hyperlipidemia Continue on her statin #6 Hypertension Essential Primary Continue on the lisinopril and propranolol #7 Sleep Apnea Continue with her mouth guard #8 Restless Leg Syndrome Continue with the Mirapex #9 Pancreatitis Chronic (HCC) We are rechecking a lipase this is going to be done next week. If this continues to be elevated we will discontinue her Wegovy altogether. If it has in the normal range she may continue at this dose #10 Tobacco Use She unfortunately continues to smoke I stressed the importance of her quitting #11 Anxiety She continues with the BuSpar and Cymbalta. She rarely uses alprazolam. Total time spent 30 minutes Ivan Echeverria P.A.-C., P.A. documented in this encounter Plan of Treatment Upcoming Encounters Date Type Department Care Team (Late st Contact Info) Description 07/18/2024 3:00 PM CDT Appointment Department of Radiology in [address] [phone] Ivan Echeverria P.A.-C. [address] [place] [address] Discharge Disposition: Home or Self Care 07/20/2024 1:00 PM CDT Office Visit Department of Orthopedic Surgery in [place], [place] [address] [place] [address] Gage Loya M.D. [address] [place] [phone] documented as of this encounter Visit Diagnoses Diagnosis Preoperative Exam- Primary Carpal Tunnel Syndrome Left Bruxism (Sleep Related) Depression Major Recurrent Moderate (HCC) Hyperlipidemia Hypertension Essential Primary Sleep Apnea Restless Leg Syndrome Pancreatitis Chronic (HCC) Tobacco Use Anxiety documented in this encounter Additional Health Concerns Assessment Noted Time PHQ-9 Depression Total Score: 4 05/13/20 24 8:57 AM CDT documented as of this encounter Care Teams Principal Web Developer Relationship Specialty Start Date End Date Ivan Echeverria P.A.-C. PCP - General 05/14/17 documented as of this encounter
--- OUTSIDE RECORDS SUMMARY | 2024-07-08 22:05 | XMS_ITS | Encounter Summary ---
Author Organization [facility] Address [address] [place] [address] Care Team Providers Care Supervisor Coremaker Name Role Phone Ivan Echeverria P.A.-C. Primary Care Provider Encounter Details Date Type Department Care Team (Latest Contact Info) Description 04/13/2024 4:01 PM CDT - 04/13/2024 11:59 PM CDT Hospital Encounter Department of Laboratory Medicine in [place], [place] [address] [place] [address] Ivan Echeverria P.A.-C. [address] [place] [phone] Arthralgia; Pancreatitis Chronic (HCC) Discharge Disposition: Home or Self Care Social History Tobacco Use Types Packs/Day Years Used Date Smoking Tobacco: Every Day Cigarettes 0.3 16 Smokeless Tobacco: Never Comments:3-4 cigarettes per day Alcohol Use Standard Drinks/Week Comments Yes 1 (1 standard drink = 0.6 oz pur e alcohol) occas. [facility] Utilities Answer Date Recorded In the past 12 months has e [employer], gas, oil, or water [employer] threatened to shut off services in your [...] How often do you attend chur or methodist services? 1 to 4 times per year 03/02/2023 Do you belong to any clubs o r organizations such as samaritan groups, unions, fraternal or athletic groups, or [...] Answer Date Recorded PHQ-2 Score 1 12/09/2023 [facility] [place] of Occupat ional Health - Occupational Stress [...] your living situation today? I have a [facility] place to live 03/10/2024 Education Answer Date Recorded What is the highest level of school you have completed or the highest degree you have received? Associate degree: occupational, technical, or vocational program 06/03/2021 Sex and Gender Information Value Date Recorded Sex Assigned at Female 02/03/2019 8:19 AM BI SOLUTIONS ARCHITECT Gender Identity Female 02/03/2019 8:19 AM BI SOLUTIONS ARCHITECT Sexual Orientation Straight 02/03/2019 8: 19 AM BI SOLUTIONS ARCHITECT documented as of this encounter Medications at Time of Discharge Medication Sig Dispensed Refills Start Date End Date atorvastatin (LIPITOR) 20 mg tablet Take 1 tablet (20 mg total) by mouth daily. 90 tablet 3 01/22/2024 01/21/2025 busPIRone (BUSPAR) 10 mg tablet Take 1 tablet (10 mg total) by mouth 2 (two) times a day. 60 tablet 11 03/11/2024 03/11/2025 DULoxetine (CYMBALTA) [address] capsule Take [...] by mouth daily. 90 tablet 3 01/22/2024 pramipexole (MIRAPEX) 0.125 mg tablet TAKE 4 TABLETS BY MOUTH EVERY NIGHT AT BEDTIME 360 tablet 3 01/22/2024 propranoloL (INDERAL LA) 120 mg 24 hr capsule Take 1 capsule (120 mg total) by mouth daily. 90 capsule 3 01/22/2024 01/21/2025 ALPRAZolam (XANAX) 0.25 mg tablet Take 1 tablet (0.25 mg total) by mouth as needed for anxiety. 4 tablet 02/02/2024 05/25/2024 ondansetron ODT (ZOFRAN-ODT) 4 mg disintegrating tablet Dissolve 1 tablet (4 mg total) in the mouth every 8 (eight) hours as needed for nausea or vomiting. 20 tablet 01/22/2024 04/20/2024 semaglutide (Wegovy) 2.4 mg/0.75 mL pen injector injection Inject 2.4 mg under the skin every 7 (seven) days. 9 mL 3 01/22/2024 04/14/2024 documented as of this encounter Plan of Treatment Upcoming Encounters Date Type Department Care Team (Late st Contact Info) Description 07/18/2024 3:00 PM CDT Appointment Department of Radiology in [place], [place] [address] [place] [phone] Ivan Echeverria P.A.-C. [address] [place] [phone] Discharge Disposition: Home or Self Care 07/20/2024 1:00 PM CDT Office Visit Department of Orthopedic Surgery in [place], [place] [address] [address] Gage Loya M.D. [address] [place] [phone] documented as of this encounter Procedures Procedure Name Priority Date/Time Associated Diagnosis Comments QUANTITATIVE M-PROTEIN STUDY, S Routine 04/13/2024 4:06 PM CDT Arthralgia LIPASE, S/P Routine 04/13/2024 4:06 PM CDT Pancreatitis Chronic (HCC) documented in this encounter Results * (ABNORMAL) Lipase (04/13/2024 4:06 PM CDT) Lipase, P 126(H) 13 - 60 U/L 04/13/2024 6:09 PM CDT [facility] Blood (Blood, Venous) 04/13/2024 4:06 PM CDT 04/13/2024 5:54 PM CDT Ivan Echeverria P.A.-C. LAB BLOOD ADD- ON [facility] [address] [place] [address], [facility]AT [facility] in [place] [address] [place] [address] * Quantitative M-protein Study (04/13/2024 4:06 PM CDT) Immunoglobulin A (IgA), S 195 61 - 356 mg/dL 04/14/2024 9:40 AM CDT [facility] Immunoglobulin M (IgM), S 67 37 - 286 mg/dL 04/14/2024 9:40 AM CDT [facility] Immunoglobulin G (IgG), S 1110 767 - 1590 mg/dL 04/14/2024 9:40 AM CDT [facility] Therapeutic Antibody Administered? Unspecified 04/14/2024 6:19 AM CDT [facility] Flag, M-protein Isotype Negative Negative 04/15/2024 8:08 AM CDT [facility] QMPTS Interpretation No monoclonal protein detected. 04/15/2024 8:08 AM CDT [facility] Comment: ----ADDITIONAL INFORMATION---- The submitted sample was assayed by five separate immunopurifications for IgG, IgA, IgM, kappa and lambda. ??The result reflects the findings of either no monoclonal protein detected or those monoclonal immunoglobulins that were detected. This test was developed and its performance characteristics determined by [facility] in a manner consistent with CLIA requirements. This test has not been cleared or approved by the U.S. Food and Drug Administration. Blood (Blood, Venous) 04/13/2024 4:06 PM CDT 04/14/2024 6:16 AM CDT Narrative [facility] - 04/15/2024 8:08 AM CDT Specimen Information: Specimen ID: [id number] Specimen Type: Blood Specimen Collection Start Date: 04/13/2024 ??4:06 PM Specimen Received Date: 04/14/2024 ??6:16 AM Specimen ID: [id number] Specimen Type: Blood Specimen Collection Start Date: 04/13/2024 ??4:06 PM Specimen Received Date: 04/14/2024 ??6:19 AM Ivan Echeverria P.A.-C. LAB BLOOD ADD- ON [facility] [address] [place] [address] [facility] [address] [place] [address] [facility] [address] [place] [facility] [place] [address] documented in this encounter Visit Diagnoses Diagnosis Arthralgia Pancreatitis Chronic (HCC) documented in this encounter Additional Health Concerns Assessment Noted Time PHQ-9 Depression Total Score: 5 12/09/19 24 11:38 AM BI SOLUTIONS ARCHITECT documented as of this encounter Care Teams Supervisor Coremaker Relationship Specialty Start Date End Date Ivan Echeverria P.A.-C. PCP - General 05/14/17 documented as of this encounter
--- OUTSIDE RECORDS SUMMARY | 2024-07-08 22:05 | XMS_ITS | Encounter Summary ---
Author Organization [facility] Address [address] [place] [address] Care Team Providers Care Rags Laborer Name Role Phone Ivan Echeverria P.A.-C. Primary Care Provider Reason for Visit * Reason Onset Date Comments SURGERY DATE 03/21/2024 Encounter Details Date Type Department Care Team (Late st Contact Info) Description 03/21/2024 Clinical Communication Department of Orthopedic Surgery in [place], [place] [address] [phone] Gage Loya M.D. [address] [phone] SURGERY DATE Social History Tobacco Use Types Packs/Day Years Used Date Smoking Tobacco: Every Day Cigarettes 0.3 16 Smokeless Tobacco: Never Comments:3-4 cigarettes per day Alcohol Use Standard Drinks/Week Comments Yes 1 (1 standard drink = 0.6 oz pur e alcohol) occas. [facility] Utilities Answer Date Recorded In the [...] How often do you attend chur or restorationist services? 1 to 4 times per year [...] Answer Date Recorded PHQ-2 Score 1 12/09/2023 [facility] of Occupat ional Health - Occupational Stress [...] your living situation today? I have a [facility] place to live 03/10/2024 Education Answer Date Recorded What is the highest level of school you have completed or the highest degree you have received? Associate degree: occupational, technical, or vocational program 06/03/2021 Sex and Gender Information Value Date Recorded Sex Assigned at Female 02/03/2019 8:19 AM SHIPPING AND RECEIVING CLERK Gender Identity Female 02/03/2019 8:19 AM SHIPPING AND RECEIVING CLERK Sexual Orientation Straight 02/03/2019 8: 19 AM SHIPPING AND RECEIVING CLERK documented as of this encounter Plan of Treatment Upcoming Encounters Date Type Department Care Team (Late st Contact Info) Description 07/18/2024 3:00 PM CDT Appointment Department of Radiology in [place], [place] [address] [place] [address] Ivan Echeverria P.A.-C. [address] [place] [address] Discharge Disposition: Home or Self Care 07/20/2024 1:00 PM CDT Office Visit Department of Orthopedic Surgery in [address] [facility] [address] Gage Loya M.D. [address], [place] [phone] documented as of this encounter Visit Diagnoses Not on filedocumented in this encounter Additional Health Concerns Assessment Noted Time PHQ-9 Depression Total Score: 5 12/09/19 24 11:38 AM SHIPPING AND RECEIVING CLERK documented as of this encounter Care Teams Rags Laborer Relationship Specialty Start Date End Date Ivan Echeverria P.A.-C. PCP - General 05/14/17 documented as of this encounter
--- OUTSIDE RECORDS SUMMARY | 2024-07-08 22:05 | XMS_ITS | Encounter Summary ---
Author Organization [facility] Address [address] [place] [address] Care Team Providers Care Hospice Registered Nurse Name Role Phone Ivan Echeverria P.A.-C. Primary Care Provider Encounter Details Date Type Department Care Team (Late st Contact Info) Description 04/14/2024 Orders Only Department of Family Medicine, [facility], in [place], [place] [address] [place] [address] Ivan Echeverria P.A.-C. [address] [place] [address] Pancreatitis Chronic (HCC) (Primary Dx) Social History Tobacco Use Types Packs/Day Years Used Date Smoking Tobacco: Every Day Cigarettes 0.3 16 Smokeless Tobacco: Never Comments:3-4 cigarettes per day Alcohol Use Standard Drinks/Week Comments Yes 1 (1 standard drink = 0.6 oz pur e alcohol) occas. [facility] Utilities Answer Date Recorded In the past 12 months has e [employer], gas, oil, or water [employer] threatened to shut off services in your [...] often do you attend chur ch or buddhism services? 1 to 4 times per year 03/02/2023 Do you belong to any clubs o r organizations such as tenriism groups, unions, fraternal or athletic groups, or [...] Answer Date Recorded PHQ-2 Score 1 12/09/2023 [facility] [place] of Occupat ional Health - Occupational Stress [...] Sex Assigned at Female 02/03/2019 8:19 AM HYDROGEOLOGIST Gender Identity Female 02/03/2019 8:19 AM HYDROGEOLOGIST Sexual Orientation Straight 02/03/2019 8: 19 AM HYDROGEOLOGIST documented as of this encounter Plan of Treatment Upcoming Encounters Date Type Department Care Team (Late st Contact Info) Description 07/18/2024 3:00 PM CDT Appointment Department of Radiology in [place], [place] [address] [place] [phone] Ivan Echeverria P.A.-C. [address] [place] [phone] Discharge Disposition: Home or Self Care 07/20/2024 1:00 PM CDT Office Visit Department of Orthopedic Surgery in [place] [address] [address] [address] Gage Loya M.D. [address] [place] [phone] documented as of this encounter Results * (ABNORMAL) Lipase (05/26/2024 8:00 AM CDT) Lipase, P 434(H) 13 - 60 U/L 05/26/2024 2:25 PM CDT [facility] Blood (Blood, Venous) 05/26/2024 8:00 AM CDT 05/26/2024 12:53 PM CDT Ivan Echeverria P.A.-C. LAB BLOOD ADD- ON [facility] [address] [place] [address], [facility] OWAT [facility] in [place] [address] [place] [address] documented in this encounter Visit Diagnoses Diagnosis Pancreatitis Chronic (HCC)- Primary documented in this encounter Additional Health Concerns Assessment Noted Time PHQ-9 Depression Total Score: 5 12/09/19 24 11:38 AM HYDROGEOLOGIST documented as of this encounter Care Teams Hospice Registered Nurse Relationship Specialty Start Date End Date Ivan Echeverria P.A.-C. PCP - General 05/14/17 documented as of this encounter
--- OUTSIDE RECORDS SUMMARY | 2024-07-08 22:05 | XMS_ITS | Encounter Summary ---
Author Organization [facility] Address [address] [place] [address] Care Team Providers Care Grain Broker Name Role Phone Ivan Echeverria P.A.-C. Primary Care Provider Reason for Visit * Reason Onset Date Comments PandaDoc Form 03/28/2024 FMLA Encounter Details Date Type Department Care Team (Latest Contact Info) Description 03/28/2024 Clinical Communication Department of Orthopedic Surgery in [place], [place] [address] [phone] Gage Loya M.D. [address] [phone] [employer] Form (FMLA) Social History Tobacco Use Types Packs/Day Years Used Date Smoking Tobacco: Every Day Cigarettes 0.3 16 Smokeless Tobacco: Never Comments:3-4 cigarettes per day Alcohol Use Standard Drinks/Week Comments Yes 1 (1 standard drink = 0.6 oz pur e alcohol) occas. [facility] Utilities Answer Date Recorded In the [...] often do you attend chur ch or quaker services? 1 to 4 times per year 03/02/2023 Do you belong to any clubs o r organizations such as alevism groups, unions, fraternal or athletic groups, or [...] Answer Date Recorded PHQ-2 Score 1 12/09/2023 [facility] [place] [facility] - Occupational [...] your living situation today? I have a [facility] place to live 03/10/2024 Education Answer Date Recorded What is the highest level of school you have completed or the highest degree you have received? Associate degree: occupational, technical, or vocational program 06/03/2021 Sex and Gender Information Value Date Recorded Sex Assigned at Female 02/03/2019 8:19 AM DEPUTY CHIEF [employer]ERIFF Gender Identity Female 02/03/2019 8:19 AM DEPUTY CHIEF SHERIFF Sexual Orientation Straight 02/03/2019 8: 19 AM DEPUTY CHIEF SHERIFF documented as of this encounter Miscellaneous Notes * Telephone Encounter - Mora Hein - 03/30/2024 3:15 PM CDT Received back completed form. Form returned via Patient Portal Scanned into [employer] * Telephone Encounter - Mora Hein - 03/29/2024 2:54 PM CDT Form was routed to Gage Loya MD for electronic review/signature. WIRE COINER: Cammie Figueroa (Patient) PHONE NUMBER: [phone] INFO REQUESTED: FMLA INSTRUCTIONS: Return to patient via portal. * Telephone Encounter - Marquita Latif - 03/28/2024 2:18 PM CDT FMLA form received by [facility] Forms Team on 03/28 from fax. Please allow 7-10 business days for form completion documented in this encounter Plan of Treatment Upcoming Encounters Date Type Department Care Team ([facility] st Contact Info) Description 07/18/2024 3:00 PM CDT Appointment Department of Radiology in [place], [place] [address] [place] [address] Iavn Echeverria, PReemaA.-C. [address] [place] [address] Discharge Disposition: Home or Self Care 07/20/2024 1:00 PM CDT Office Visit Department of Orthopedic Surgery in [place], [place] [address] [place] [address] Gage Loya M.D. [address] [phone] documented as of this encounter Visit Diagnoses Not on filedocumented in this encounter Additional Health Concerns Assessment Noted Time PHQ-9 Depression Total Score: 5 12/09/19 24 11:38 AM DEPUTY CHIEF SHERIFF documented as of this encounter Care Teams Grain Broker Relationship Specialty Start Date End Date Ivan Echeverria, P.A.-C. PCP - General 05/14/17 documented as of this encounter
[2024-07-08 22:16] LABS: NT Pro B Type NatriureticPept* 52 pg/mL; Troponin I* < 0.01 ng/mL (0.01-0.04)
[2024-07-08 22:18] LABS: Chloride* 105 mmol/L (96-114); Sodium* 137 mmol/L (135-149)
[2024-07-08 22:21] LABS: Anion Gap 7 mEq/L (7-15); Carbon Dioxide* 25 mmol/L (20-32); Creatinine* 0.8 mg/dL (0.5-1.5); Est. Creatinine Clearance* 83.63; Estimated Glomerular Filt Rate 91 ml/min
[2024-07-08 22:22] LABS: Blood Urea Nitrogen* 16 mg/dL (5-24); Calcium* 9.6 mg/dL (8.4-10.6); Glucose* 128 mg/dL (60-115)
[2024-07-08 22:25] LABS: C Reactive Protein* 0.8 mg/dL (0.5-1.0)
== END 2024-07-08 22:52 | disposition home or self-care (01) ==
PROVIDERS: Emergency Provider Family Medicine
DX: R07.9 Chest pain, unspecified (principal); U07.1 COVID-19; F41.9 Anxiety disorder, unspecified
CPT/HCPCS: 36415; 80048; 82803; 83735; 83880; 84484; 85025; 85379; 86140; 93005; 94761; 96374; 96376; 99284; J2060; J7030